=== PATIENT | female | born 1950 | race Caucasian/White ===

== ENCOUNTER 2023-09-17 10:16 | Outpatient (OUT) | payer MEDICARE, SELFPAY ==
--- NOTE | 2023-09-17 10:52 | XR_ITS ---
The [address] [address] Patient Name: BON ALMONTE MRN: [id number] date: 1950 Sex: F Assigned Patient Location: [facility] Current Patient Location: [facility] Accession/Order Number: [id number] Exam Date: 09/17/2023 11:00 Report Date: 09/17/2023 13:55 At the request of: UNIQUE POLK Procedure: XR hand LT min 3V PROCEDURE: XR hand LT min 3V COMPARISON: None. HISTORY: Mass Of Left Hand R22.32 FINDINGS: BONES:No acute fracture or dislocation. Moderate to severe degenerative change second and third distal interphalangeal joints and first carpal metacarpal joint where there is bony remodeling. SOFT TISSUES:Negative. No visible soft tissue swelling. EFFUSION:None visible. OTHER: No plain film abnormality corresponding to the patient's focal mass along the dorsal third metacarpal phalangeal joint XR/XR hand LT min 3V IMPRESSION: No plain film abnormality to correspond to the patient's palpable mass Degenerative changes Electronically authenticated by: TESS QUARLES Date: 09/17/2023 13:55
== END 2023-09-17 10:17 | disposition home or self-care (01) ==
PROVIDERS: Visit Provider Orthopaedic Surgery
DX: R22.32 Localized swelling, mass and lump, left upper limb (principal)
CPT/HCPCS: 73130

== ENCOUNTER 2023-09-25 08:49 | Outpatient (OUT) | payer MEDICARE, SELFPAY ==
--- NOTE | 2023-09-25 09:11 | MR_ITS ---
The [address] [address] Patient Name: BON ALMONTE MRN: [id number] date: 1950 Sex: F Assigned Patient Location: LAB Current Patient Location: Accession/Order Number: [id number] Exam Date: 09/25/2023 10:00 Report Date: 09/27/2023 15:46 At the request of: UNIQUE POLK Procedure: MR hand LT wo/w con EXAM: MR hand LT wo/w con HISTORY: Palmar mass COMPARISON: Hand x-rays 09/17/2023 TECHNIQUE: Multiplanar, multi sequential MRI sequences were performed with and without the administration of intravenous contrast FINDINGS: Soft tissue markers have been placed along the palmar aspect of the hand. These soft tissue markers abnormally compress the underlying soft tissues and result in inhomogeneous fat saturation. Approximately 12 x 11 x 6.3 mm multiloculated synovial cyst emanates from the volar aspect of the third flexor tendon sheath (axial 24, coronal 9 and sagittal 13). Approximately 6.4 x 4.8 x 2.5 mm synovial cyst emanates from the volar aspect of the second flexor tendon sheath (axial 24). No tendon thickening, tear, edema or tenosynovial collection. The remainder of the flexor tendons along with all of the extensor tendons exhibit no thickening, tear, edema or tenosynovial collections. No abnormal bursal fluid collections. No fracture, dislocation, subluxation or osseous lesion. No joint effusion, synovitis or erosion. The joint capsules and collateral ligaments appear unremarkable. No muscle edema, hematoma, atrophy or fatty infiltration. Postcontrast sequences exhibit no abnormal enhancement. MR/MR hand LT wo/w con IMPRESSION: 12 x 11 x 6.3 mm multiloculated synovial cyst emanates from the volar aspect of the third flexor tendon sheath. 6.4 x 4.8 x 2.5 mm synovial cyst emanates from the volar aspect of the second flexor tendon sheath Electronically authenticated by: TESS LANE Date: 09/27/2023 15:46
[2023-09-25 09:57] LABS: Estimated GFR (African America >60 (>=60); Estimated GFR (Non-African Ame 57 (>=60)
== END 2023-09-25 08:50 | disposition home or self-care (01) ==
PROVIDERS: Visit Provider Orthopaedic Surgery
DX: Z01.812 Encounter for preprocedural laboratory examination (principal); R22.32 Localized swelling, mass and lump, left upper limb; M71.342 Other bursal cyst, left hand
CPT/HCPCS: 36415; 73220; 82565; A9575

== ENCOUNTER 2024-01-29 14:12 | Outpatient (OUT) | payer MEDICARE, SELFPAY ==
--- OUTSIDE RECORDS SUMMARY | 2024-01-29 14:24 | XMS_ITS | CCD ---
Author Organization [facility] Care Team Providers Care Assistant Technician Name Role Phone Ivonne Álvarez MD Primary Care Provider MD Ivonne Álvarez Primary Care Provider [phone] Self, Referral Attending Provider Unavailable Ivonne Álvarez MD Primary Care Provider [phone] Ivonne Álvarez MD Primary Care Provider [phone] Ivonne Álvarez MD Primary Care Provider [phone] JAZZY RILEY Referring Unavailabl e IVONNE ÁLVAREZ Primary Care Unavailable BLANCA MELO Referring Unavailable IVONNE ÁLVAREZ M Primary Care Unavailable BLANCA MELO Referring Unavailable IVONNE ÁLVAREZ M Primary Care Unavailable BLANCA MELO Referring Unavailable IVONNE ÁLVAREZ M Primary Care Unavailable MCKENZIEY ., DR CORONADO Admitting Unavailable HOY ., DR CORONADO Attending Unavailable HOY ., DR CORONADO Primary Care Unavailable HOY ., DR CORONADO Consulting Unavailable ZIEBER, DR UNIQUE Perrin Consulting Unavailable HOY ., DR CORONADO Admitting Unavailable HOY ., DR CORONADO Attending Unavailable HOY ., DR CORONADO Primary Care Unavailable HOY ., DR CORONADO Consulting Unavailable ZIEBER, DR UNIQUE Perrin Consulting Unavailable HOY ., DR CORONADO Admitting Unavailable HOY ., DR CORONADO Attending Unavailable HOY ., DR CORONADO Primary Care Unavailable HOY ., DR COROANDO Consulting Unavailable HOY ., DR CORONADO Admitting Unavailable HOY ., DR CORONADO Attending Unavailable HOY ., DR CORONADO Primary Care Unavailable MCKENZIEY ., DR CORONADO Consulting Unavailable MD Ivonne Álvarez Primary Care Provider [phone] Self, Referral Attending Provider Unavailable MAIN Riley Referring Provider Ivonne Álvarez Primary Care Unavailable Self, Referral Attending Unavailable Self, Referral Admitting Unavailable Jazzy Riley Referring Unavailable Ivonne Álvarez MD Primary Care Provider [phone] IVONNE ÁLVAREZ Primary Care Unavailable IVONNE ÁLVAREZ Primary Care Unavailable DANTE PALOMARES MD Referring Unavailable Medications Current Medications Medication Drug Class(es) Dates Sig (Normalized) Sig (Original) acetaminophen 325 mg oral capsule (10 sources) Start: 03-26-2021 Acetaminophen (Tylenol) 325 mg Capsule Active 500 MG PO Daily March 26, 2021 10:09am take 1 tablet by laura th every six hours as needed for pain acetaminophen (TYLENOL) 500 MG tablet Ta ke 500 mg by mouth every 6 hours as needed for Pain 0 Active ACETAMINOPHEN (T YLENOL ORAL) Take by mouth. 0 Active Comment on above: Take by mouth. allopurinol 300 mg oral tablet (10 sources) Xanthine Oxidase Inhibitor Start: 03-26-20 take 1 tablet by mouth once daily allopurinol (ZYLOPRIM) 300 MG tablet TAKE 1 TABLET BY MOUTH ONCE DAILY 0 07/12/2022 Active Comment on above: Take 300 mg by mouth once daily. chlorthalidone 25 mg oral tablet (12 sources) Thiazide-like Diuretic Start: 08-10-20 23 take 1 tablet by mouth once daily chlorthalidone (HYGROTON) 25 mg tablet Indications: Essential hypertension Take 1 tablet by mouth once daily. 90 tablet 3 08/10/2023 Active Start: 02-26-2021 End: 08-07-2023 take 1 tablet by mouth once daily chlorthalidone (HYGROTON) 25 mg tablet Indications: Essential hypertension Take 1 tablet by mouth once daily. 90 tablet 3 03/06/2022 08/07/2023 Discontinued Comment on above: Take 1 tablet by laura th once daily. cholecalciferol 0.05 mg oral capsule (5 sources) Vitamin D Start: 03-26-20 take 1 capsule by mouth once daily Cholecalciferol (Vitamin D3) (Vitamin D3) 50 mcg (2,000 unit) Capsule Active 50 MCG PO Daily March 26, 2021 10:09am Cholecalciferol (VITAMIN D3) 125 MCG (5000 UT) TABS Take by mouth 0 Active ciprofloxacin 500 mg oral tablet (2 sources) Quinolone Antimicrobial Start: 08-04-2022 take 1 tablet by mouth twice daily ciprofloxacin (CIPRO) 500 MG tablet TAKE 1 TABLET BY MOUTH TWICE DAILY 0 08/04/2022 Active diclofenac sodium 75 mg delayed release oral tablet (10 sources) Nonsteroidal Anti-inflammatory Drug Start: 06-28-2022 take 1 tablet by mouth twice daily diclofenac (VOLTAREN) 75 MG EC tablet TAKE 1 TABLET BY MOUTH TWICE DAILY 0 06/28/2022 Active Start: 03-26-2021 take 75 mg by mouth once daily Diclofenac Sodium Active 75 MG PO Daily March 26, 2021 10:09am Comment on above: Take 75 mg by mouth once daily. lovastatin 20 mg oral tablet (10 sources) HMG-CoA Reductase Inhibitor Start: 1 take 1 tablet by mouth once daily lovastatin (MEVACOR) 20 MG tablet TAKE 1 TABLET BY MOUTH ONCE DAILY 0 05/03/2022 Active Comment on above: Take 20 mg by mouth daily at bedtime. 24 hr mirabegron 25 mg extended release oral tablet (1 source) beta3-Adrenergic Agonist Start: 2 End: 3 take 1 tablet by mouth once daily mirabegron (MYRBETRIQ) 25 MG TB24 Indications: Mixed incontinence , Renal calculus , Frequent UTI Take 1 tablet by mouth daily 56 tablet 0 09/24/2022 11/19/2022 Active oxybutynin chloride 5 mg oral tablet (10 sources) Cholinergic Muscarinic Antagonist Start: 1 take 5 mg by mouth once daily Oxybutynin Chloride Active 5 MG PO Daily March 26, 2021 10:09am take 1 tablet by mouth twice lew ly oxybutynin (DITROPAN) 5 mg tablet Take 5 mg by mouth twice daily. 0 Active Comment on above: Take 5 mg by mouth t wice daily. pantoprazole 40 mg delayed release oral tablet (9 sources) Proton Pump Inhibitor Start: 2 take 1 tablet by mouth once daily pantoprazole (PROTONIX) 40 MG tablet TAKE 1 TABLET BY MOUTH ONCE DAILY 0 05/11/2022 Active Start: 03-26-2021 take 20 mg by mouth once daily Pantoprazole Active 20 MG PO Daily March 26, 2021 10:09am Comment on above: Take 1 tablet by laura once daily. Completed/Discontinued Medications Medication Drug Class(es) Dates Sig (Normalized) Sig (Original) cholecalciferol, vitamin D3, (VITAMIN D3 ORAL) (2 sources) take 1000 mg by mouth once daily cholecalciferol, vitamin D3, (VITAMIN D3 ORAL) Take 1,000 mg by mouth once daily. 0 Active Comment on above: Take 1,000 mg by laura th once daily. dicyclomine hydrochloride 20 mg oral tablet (5 sources) Anticholinergic Start: 04-16-2021 take 1 tablet by mouth twice daily dicyclomine (BENTYL) 20 mg tablet Take 20 mg by mouth twice daily. 0 04/16/2021 Active Comment on above: Take 20 mg by mouth twice daily. lisinopril 40 mg oral tablet (10 sources) Angiotensin Converting Enzyme Inhibitor Start: 06-14-2020 take 1 tablet by mouth once daily lisinopril (ZESTRIL, PRINIVIL) 40 mg tablet Take 1 tablet by mouth once daily. 0 06/14/2020 Active Comment on above: Take 1 tablet by laura th once daily. Problems Active Problems Problem Classification Problem Date Documented Date Episodic/Chronic Acute and unspecified renal failure (1 source) Acute injury of kidney; Translations: [Acute kidney failure, unspecified] Episodic Calculus of urinary tract (1 source) Calculus of kidney; Translations: [Calculus of kidney] Onset: 08-28-2022 Episodic Deficiency and other anemia (1 source) Anemia, unspecified; Translations: [ANEMIA UNSPECIFIED] Onset: 01-02-2023 Episodic Diabetes mellitus without complication (1 source) Other abnormal glucose; Translations: [OTHER ABNORMAL GLUCOSE] Onset: 01-02-2023 Episodic Disorders of lipid metabolism (7 sources) Mixed hyperlipidemia; Translations: [Mixed hyperlipidemia] Onset: 01-21-2022 Chronic Esophageal disorders (7 sources) Laryngopharyngeal reflux; Translations: [Gastro-esophageal reflux disease without esophagitis] Onset: 07-06-2020 07-06-2020 Chronic Essential hypertension (9 sources) Essential hypertension; Translations: [Essential (primary) hypertension] Onset: 09-10-2022 Chronic Gastritis and duodenitis (2 sources) Gastritis; Translations: [Gastritis, unspecified, without bleeding] 03-26-2021 Episodic Genitourinary symptoms and ill-defined conditions (4 sources) Urinary incontinence; Translations: [Unspecified urinary incontinence] Onset: 07-29-2022 Chronic Nutritional deficiencies (1 source) Vitamin D deficiency, unspecified; Translations: [VITAMIN D DEFICIENCY UNSPECIFIED] Onset: 01-02-2023 Chronic Other non-traumatic joint disorders (1 source) Pain in left hip; Translations: [PAIN IN LEFT HIP] Onset: 01-02-2023 Episodic Other screening for suspected conditions (not mental disorders or infectious disease) (9 sources) Patient encounter status; Translations: [Encounter for screening for malignant neoplasm of colon] Onset: 01-27-2022 03-26-2021 Episodic Spondylosis; intervertebral disc disorders; other back problems (5 sources) Cervical spondylosis without myelopathy; Translations: [Spondylosis without myelopathy or radiculopathy, cervical region] Onset: 12-03-2015 12-03-2015 Chronic Unclassified (1 source) Encounter for screening mammogram for malignant neoplasm of breast; Translations: [Encounter for screening mammogram for malignant neoplasm of breast] Onset: 07-09-2023 Past or Other Problems Problem Classification Problem Date Documented Da te Episodic/Chronic Malaise and fatigue (1 source) Other fatigue; Translations: [OTHER FATIGUE] Onset: 01-24-2022 Episodic Other diseases of kidney and ureters (1 source) Disorder of kidney and ureter, unspecified; Translations: [DISORDER KIDNEY AND URETER UNS] Onset: 01-20-2022 Episodic Spondylosis; intervertebral disc disorders; other back problems (5 sources) Brachial (cervical) neuritis; Translations: [Radiculopathy, cervical region] Onset: 12-03-2015 12-03-2015 Episodic Urinary tract infections (7 sources) Recurrent urinary tract infection; Translations: [Urinary tract infection, site not specified] Onset: 01-16-2022 Episodic Results Test Name Value Interpretation Reference Range Facility Basic metabolic 2000 panelon 08-13-2023 Anion gap [Moles/Vol] 8 mmol/L Low 9-18 [facility] Comment on above: Order Comment: Speci men Type: BLOOD SPECIMEN Ordering Facility: [facility] Address: [place] [address] Performed By: #### 2 4321-2 #### [facility] CLIA [id number] [address] [place] [address] Calcium [Mass/Vol] 9.3 mg/dL Normal 8.5-10.[address] [facility] Comment on above: Order Comment: Speci men Type: BLOOD SPECIMEN Ordering Facility: [facility] Address: [address] [place] [address] Performed By: #### 2 4321-2 #### [facility] CLIA [id number] [address] [place] [address] Chloride [Moles/Vol] 103 mmol/L Normal 97-105 [facility] Comment on above: Order Comment: Speci men Type: BLOOD SPECIMEN Ordering Facility: [facility] Address: [address] [place] [address] Performed By: #### 2 4321-2 #### [facility] CLIA [id number] [address] [place] [address]7967 CO2 [Moles/Vol] 29 mmol/L Normal 22-30 [facility] Comment on above: Order Comment: Speci men Type: BLOOD SPECIMEN Ordering Facility: [facility] Address: [address] [place] [address] Performed By: #### 2 4321-2 #### [facility] CLIA [id number] [address] [place] [address]252 Creatinine [Mass/Vol] 0.92 mg/dL Normal 0.58-0.96 [facility] Comment on above: Order Comment: Speci men Type: BLOOD SPECIMEN Ordering Facility: [facility] Address: [address] [place] [address] Performed By: #### 2 4321-2 #### [facility] CLIA [id number] [address] [place] [address] Creatinine and Glomerular filtration rate.predicted panel (S/P/Bld) 67 mL/min/1.73m??? Normal >=60 [facility] Comment on above: Order Comment: Speci men Type: BLOOD SPECIMEN Ordering Facility: [facility] Address: [address] [place] [address] Result Comment: Nallely mated Glomerular Filtration Rate (eGFR) is calculated using the 2020 CKD-EPI creatinine equation. This equation utilizes serum creatinine, sex, and age as parameters. The creatinine assay has traceable calibration to isotope dilution-mass spectrometry. Refer to KDIGO guidelines for clinical interpretation. In patients with unstable renal function, e.g. those with acute kidney injury, the eGFR may not accurately reflect actual GFR. Performed By: #### 2 4321-2 #### [facility] CLIA [id number] [address] [place] [address]141 Glucose [Mass/Vol] 119 mg/dL High 74-[address] [facility] Comment on above: Order Comment: Speci men Type: BLOOD SPECIMEN Ordering Facility: [facility] Address: [address] [place] [address] Result Comment: The [place] Diabetes Association (ADA) provides guidance for cutoff values for fasting glucose and random glucose. The ADA defines fasting as no caloric intake for at least 8 hours. Fasting plasma glucose results between 100 to 125 mg/dL indicate increased risk for diabetes (prediabetes). Fasting plasma glucose results greater than or equal to 126 mg/dL meet the criteria for diagnosis of diabetes. In the absence of unequivocal hyperglycemia, results should be confirmed by repeat testing. In a patient with classic symptoms of hyperglycemia or hyperglycemic crisis, random plasma glucose results greater than or equal to 200 mg/dL meet the criteria for diagnosis of diabetes. Reference: Standards of Medical Care in Diabetes 2016, [place] Diabetes Association. Diabetes Care. 2016.39(Suppl 1). Performed By: #### 2 4321-2 #### [facility] CLIA [id number] [address] [place] [address] 15592 Potassium [Moles/Vol] 3.8 mmol/L Normal 3.7-5.1 [facility] Comment on above: Order Comment: Speci men Type: BLOOD SPECIMEN Ordering Facility: [facility] Address: [address] [place] [address] Performed By: #### 2 4321-2 #### [facility] CLIA [id number] [address] [place] [address] Sodium [Moles/Vol] 140 mmol/L Normal 136-[address] [facility] Comment on above: Order Comment: Speci men Type: BLOOD SPECIMEN Ordering Facility: [facility] Address: [place] [address] Performed By: #### 2 4321-2 #### [facility] CLIA [id number] [address] [place] [address] 97659 Urea nitrogen [Mass/Vol] 19 mg/dL Normal 7-21 [facility] Comment on above: Order Comment: Speci men Type: BLOOD SPECIMEN Ordering Facility: [facility] Address: [place] [address] Performed By: #### 2 4321-2 #### [facility] CLIA [id number] [address] [place] [address] MM screening mammo BI w/CADo n 07-09-2023 MM screening mammo BI w/CAD [facility] [place] [address] [place] [address] Mammography Report Signed Patient: Monique Valdez MR#: [id number] : 1950 Acct:[id number] Age/Sex: 73 / F ADM Date: 07/09/23 Loc: [place] Room: Type: [facility] Attending Dr: Referral Self Copies to: Ivonne Álvarez MD SELF,REFERRAL Jazzy Riley CNM Ordering Provider: SELF,REFERRAL Date of Service: 07/09/23 MM/MM screening mammo BI w/CAD: SCREENING BILATERAL Screening Full Field digital mammogram with 3-D imaging. Full field digital CC and MLO imaging performed. CAD utilized. COMPARISON: 04/02/2022 HISTORY: Annual screening BREAST COMPOSITION: The breast is almost entirely fatty. BENIGN BREAST CALCIFICATIONS: Present VASCULAR CALCIFICATIONS: Present DEVELOPING ARCHITECTURAL DISTORTION: None DEVELOPING BREAST NODULE: None DEVELOPING MALIGNANT CALCIFICATIONS: None AXILLARY LYMPH NODES: Normal POSTSURGICAL CHANGES: None MM/MM screening mammo BI w/CAD IMPRESSION: No mammographic evidence of malignancy. Routine follow-up recommended in one year. RESULT CODE: 2 Benign Findings(s) DENSITY CODE: 2 (approximately 25-50% glandular) FOLLOW UP: 1YR THE FALSE-NEGATIVE RATE OF MAMMOGRAPHY IS APPROXIMATELY 10%. IMAGING OF A PALPABLE ABNORMALITY MUST BE BASED ON CLINICAL GROUNDS. PATIENT WAS ENTERED INTO A REMINDER SYSTEM WITH A TARGET DUE DATE FOR THE NEXT MAMMOGRAM. Impression dictated by: Pipo Waller M.D.07/09/2023 3:08 PM Dictation Location: [facility] Transcribed By: [facility] 07/09/23 1508 Dictated By: Pipo Waller DO 07/09/23 1507 Signed By: 07/09/23 [address] [facility] INSULINon 12-25-2022 Insulin 14.0 uIU/mL Normal 2.6-24.9 [facility] Comment on above: Performed By: #### I NSULIN ####[facility] [address] [place] [address]Dr. Kai Hdz CBC AUTO DIFFon 12-24-2022 BASO # 0.1 103/ul Normal 0.0-0.1 [facility] Comment on above: Performed By: #### C BC #### [facility] [address] [place] [address] [address] Kai Hdz Basophils/100 WBC (Bld) 1.0 % Normal 0.2-2.0 [facility] Comment on above: Performed By: #### C BC #### [facility] [address] [place] [address] [address] Kai Hdz EO # 0.2 103/ul Normal 0.0-0.7 [facility] Comment on above: Performed By: #### C BC #### [facility] [address] [place] [address] [address] Kai Hdz Eosinophils/100 WBC (Bld) 2.7 % Normal 0.9-7.0 [facility] Comment on above: Performed By: #### C BC #### [facility] [address] [place] [address] [address] Kia Hdz Erythrocyte distribution width (RBC) [Ratio] 14.5 % Normal 11.0-15.0 [facility] Comment on above: Performed By: #### C BC #### [facility] [address] [place] [address] [address] Kai Hdz Hematocrit (Bld) [Volume fraction] 42.0 % Normal 36.0-48.0 [facility] Comment on above: Performed By: #### C BC #### [facility] [address] [place] [address] [address] Kai Hdz Hemoglobin (Bld) [Mass/Vol] 13.5 g/dL Normal 12.0-16.0 [facility] Comment on above: Performed By: #### C BC #### [facility] [address] [place] [address] [address] Kai Hdz IG # 0.02 10e3/ul Normal 0.00-0.03 [facility] Comment on above: Performed By: #### C BC #### [facility] [address] [place] [address] Dr. Kai Hdz IG % 0.3 % Normal 0.0-0.5 [facility] Comment on above: Performed By: #### C BC #### [facility] [address] [place] [address] Dr. Kai Hdz LYMPH # 3.3 103/ul Normal 1.2-3.8 [facility] Comment on above: Performed By: #### C BC #### [facility] [address] [place] [address] Dr. Kai Hdz Lymphocytes/100 WBC (Bld) 47.2 % Normal 20.5-60.0 [facility] Comment on above: Performed By: #### C BC #### [facility] [address] [place] [address] Dr. Kai Hdz MANUAL DIFF REQ NO Normal [facility] Comment on above: Performed By: #### C BC #### [facility] [address] [place] [address] Dr. Kai Hdz MCH (RBC) [Entitic mass] 28.7 pg Normal 26.7-34.0 [facility] Comment on above: Performed By: #### C BC #### [facility] [address] [place] [address] Dr. Kai Hdz MCHC (RBC) [Mass/Vol] 32.1 g/dL Normal 29.9-35.2 [facility] Comment on above: Performed By: #### C BC #### [facility] [address] [address] [address] Kai Hdz MCV (RBC) [Entitic vol] 89.2 fL Normal 81.0-99.0 [facility] Comment on above: Performed By: #### C BC #### [facility] [address] [place] [address] Dr. Kai Hdz MONO # 0.4 103/ul Normal 0.3-0.8 [facility] Comment on above: Performed By: #### C BC #### [facility] [address] [place] [address] Dr. Kai Hdz Monocytes/100 WBC (Bld) 5.0 % Normal 1.7-12.0 [facility] Comment on above: Performed By: #### C BC #### [facility] [address] [place] [address] Dr. Kai Hdz NEUT # 3.1 103/ul Normal 1.4-6.5 [facility] Comment on above: Performed By: #### C BC #### [facility] [address] [place] [address] Dr. Kai Hdz Neutrophils/100 WBC (Bld) 43.8 % Normal 43.0-75.0 [facility] Comment on above: Performed By: #### C BC #### [facility] [address] [place] [address] Dr. Kai Hdz Platelet mean volume (Bld) [Entitic vol] 9.0 fL Critically low 9.5-13.5 [facility] Comment on above: Performed By: #### C BC #### [facility] [address] [place] [address] Dr. Kai Hdz PLT 243 103/ul Normal 150-450 [facility] Comment on above: Performed By: #### C BC #### [facility] [address] [place] [address] Dr. Kai Hdz RBC 4.71 106/ul Normal 4.20-5.40 [facility] Comment on above: Performed By: #### C BC #### [facility] [address] [address] [address] Kai Hdz WBC 7.0 103/ul Normal 4.0-11.0 [facility] Comment on above: Performed By: #### C BC #### [facility] [address] [place] [address] [address] Kai Hdz FREE THYROXINE INDEX T7on FTI 2.71 Normal 1.30-4.50 [facility] Comment on above: Performed By: #### C MP, TSH, T7, LIPID ####[facility] [address] [place] [id number]. Kai Hdz T3U 33.0 % Normal 30.0-39.0 [facility] Comment on above: Performed By: #### C MP, TSH, T7, LIPID ####[facility] [address] [place] [id number] Hdz T4 [Mass/Vol] 8.20 ug/dL Normal 4.80-13.90 [facility] Comment on above: Performed By: #### C MP, TSH, T7, LIPID ####[facility] [address] [place] [address]DrLucio Hdz GLYCOHEMOGLOBIN A1Con 2022 ADA RECOMMENDATION SEE BELOW Normal [facility] Comment on above: Result Comment: ADA RECOMMENDED LIMIT 4.0 - 6.0 ADA THERAPEUTIC TARGET < 7.0 ACTION SUGGESTED > 7.0 Performed By: #### A 1C ####[facility] [address] [place] [address]DrLucio Hdz Glucose [Mass/Vol] 105 mg/dL Normal [facility] Comment on above: Performed By: #### A 1C ####[facility] [address] [place] [address]DrLucio Hdz HbA1c (Bld) [Mass fraction] 5.3 % Normal 4.5-6.2 [facility] Comment on above: Performed By: #### A 1C ####[facility] [address] [place] [address]DrLucio Hdz IRONon 12-24-2022 Iron [Mass/Vol] 89.0 ug/dL Normal 50.0-170.0 [facility] Comment on above: Performed By: #### V ITAD, IRON ####[facility] [address] [place], [place] [address]OdDr. Kai Hdz LIPID PROFILEon 12-24-2022 CHOL-HDL RATIO NORM SEE BELOW Normal [facility] Comment on above: Result Comment: 3.3 - 4.4 LOW RISK 4.4 - 7.1 AVERAGE RISK 7.1 - 11.0 MODERATE RISK >11.0 HIGH RISK Performed By: #### C MP, TSH, T7, LIPID #### [facility] [address] [address] [address] Kai Hdz Cholesterol [Mass/Vol] 246 mg/dL Critically high <=200 [facility] Comment on above: Performed By: #### C MP, TSH, T7, LIPID #### [facility] [address] [place] [address] [address] Kai Hdz Cholesterol in HDL [Mass/Vol] 43 mg/dL Normal 40-60 [facility] Comment on above: Performed By: #### C MP, TSH, T7, LIPID #### [facility] [address] [place] [address] [address] Kai Hdz Cholesterol in LDL [Mass/Vol] 158.2 mg/dL Normal [facility] Comment on above: Performed By: #### C MP, TSH, T7, LIPID #### [facility] [address] [address] [address] Kai Hdz Cholesterol.total/Cho lesterol in HDL [Mass ratio] 5.7 {ratio} Normal [facility] Comment on above: Performed By: #### C MP, TSH, T7, LIPID #### [facility] [address] [address] [address] Kai Hdz HDL NORMAL > or = 60 mg/dl - LOW CARDIOVASCULAR RISK <40 mg/dl - HIGH CARDIOVASCULAR RISK Normal [facility] Comment on above: Performed By: #### C MP, TSH, T7, LIPID #### [facility] [address] [address] [address] Kai Hdz LDL CALC NORMAL SEE BELOW Normal [facility] Comment on above: Result Comment: <100 mg/dl OPTIMAL 100 - 129 mg/dl NEAR OR ABOVE OPTIMAL 130 - 159 mg/dl BORDERLINE HIGH 160 - 189 mg/dl HIGH >190 mg/dl VERY HIGH Performed By: #### C MP, TSH, T7, LIPID #### [facility] [address] [address] [address] Kai Hdz Triglyceride [Mass/Vol] 224 mg/dL Critically high <=150 [facility] Comment on above: Performed By: #### C MP, TSH, T7, LIPID #### [facility] [address] [address] [address] Kai Hdz VLDL CALC 44.8 mg/dL Normal [facility] Comment on above: Performed By: #### C MP, TSH, T7, LIPID #### [facility] [address] [address] [address] Kai Hdz OCC BLD IMMUNO SCREENon 12-10 OCCULT BLOOD Negative Normal NEGATIVE [facility] Comment on above: Performed By: #### O BSCRN ####[facility] [address] [address]Dr. Kai Hdz PROF 14(COMP METB)on 023 Albumin [Mass/Vol] 3.7 g/dL Normal 3.4-5.0 [facility] Comment on above: Performed By: #### C MP, TSH, T7, LIPID #### [facility] [address] [address] [address] Kai Hdz Albumin/Globulin [Mass ratio] 1.2 {ratio} Normal [facility] Comment on above: Performed By: #### C MP, TSH, T7, LIPID #### [facility] [address] [address] [address] Kai Hdz ALP [Catalytic activity/Vol] 84 U/L Normal 46-116 [facility] Comment on above: Performed By: #### C MP, TSH, T7, LIPID #### [facility] [address] [address] [address] Kai Hdz ALT [Catalytic activity/Vol] 17 U/L Normal 14-59 [facility] Comment on above: Performed By: #### C MP, TSH, T7, LIPID #### [facility] [address] [address] [address] Kai Hdz Anion gap [Moles/Vol] 8.8 mmol/L Normal [facility] Comment on above: Performed By: #### C MP, TSH, T7, LIPID #### [facility] [address] [address] [address] Kai Hdz AST [Catalytic activity/Vol] 17 U/L Normal 15-37 [facility] Comment on above: Performed By: #### C MP, TSH, T7, LIPID #### [facility] [address] [place] [address] Dr. Kai Hdz Bilirubin [Mass/Vol] 0.7 mg/dL Normal 0.2-1.0 [facility] Comment on above: Performed By: #### C MP, TSH, T7, LIPID #### [facility] [address] [place] [address] Dr. Kai Hdz Calcium [Mass/Vol] 9.2 mg/dL Normal 8.5-10.1 [facility] Comment on above: Performed By: #### C MP, TSH, T7, LIPID #### [facility] [address] [place] [address] Dr. Kai Hdz Chloride [Moles/Vol] 104 mmol/L Normal 98-107 [facility] Comment on above: Performed By: #### C MP, TSH, T7, LIPID #### [facility] [address] [place] [address] Dr. Kai Hdz CO2 [Moles/Vol] 29.2 mmol/L Normal 21.0-32.0 [facility] Comment on above: Performed By: #### C MP, TSH, T7, LIPID #### [facility] [address] [place] [address] Dr. Kai Hdz Creatinine [Mass/Vol] 0.78 mg/dL Normal 0.55-1.02 [facility] Comment on above: Performed By: #### C MP, TSH, T7, LIPID #### [facility] [address] [address] [address] Kai Hdz EGFR-AF LIBYAN >60 Normal >=60 [facility] Comment on above: Performed By: #### C MP, TSH, T7, LIPID #### [facility] [address] [address] [address] Kai Hdz EGFR-NON AF LIBYAN >60 Normal >=60 [facility] Comment on above: Performed By: #### C MP, TSH, T7, LIPID #### [facility] [address] [address] [address] Kai Hdz Globulin (S) [Mass/Vol] 3.2 g/dL Normal [facility] Comment on above: Performed By: #### C MP, TSH, T7, LIPID #### [facility] [address] [place] [address] Dr. Kai Hdz Glucose [Mass/Vol] 110 mg/dL Critically high 74-106 [facility] Comment on above: Performed By: #### C MP, TSH, T7, LIPID #### [facility] [address] [address] [address] Kai Hdz Potassium [Moles/Vol] 4.0 mmol/L Normal 3.5-5.1 [facility] Comment on above: Performed By: #### C MP, TSH, T7, LIPID #### [facility] [address] [address] [address] Kai Hdz Protein [Mass/Vol] 6.9 g/dL Normal 6.4-8.2 [facility] Comment on above: Performed By: #### C MP, TSH, T7, LIPID #### [facility] [address] [address] [address] Kai Hdz Sodium [Moles/Vol] 138 mmol/L Normal 136-145 [facility] Comment on above: Performed By: #### C MP, TSH, T7, LIPID #### [facility] [address] [address] [address] Kai Hdz Urea nitrogen [Mass/Vol] 24.0 mg/dL Critically high 7.0-18.0 [facility] Comment on above: Performed By: #### C MP, TSH, T7, LIPID #### [facility] [id number] Kai Hdz Urea nitrogen/Creatinine [Mass ratio] 30.8 mg/mg Normal [facility] Comment on above: Performed By: #### C MP, TSH, T7, LIPID #### [facility] [address] [place], [place] [address] Dr. Kai Hdz TSHon 12-24-2022 TSH 3.414 uIU/mL Normal 0.358-3.740 [facility] Comment on above: Performed By: #### C MP, TSH, T7, LIPID #### [facility] [address] [address] [address] Kai Hdz VITAMIN D 25 OHon 12-24-2022 VIT D 25-OH 26.7 ng/mL Normal [facility] Comment on above: Performed By: #### V TOMAS, IRON ####[facility] [address] [place], [place] [address]UvLucio Hdz VIT D RANGES SEE BELOW Normal [facility] Comment on above: Result Comment: <20 ng/mL Vit D deficient 20 - <30 ng/mL Vit D insufficient 30 - 100 ng/mL Vit D sufficient >100 ng/mL Potential Toxicity Performed By: #### V ITERICA, IRON ####[facility] [address] [id number] Hdz XR HIPS KOFI 5V W PELVISon XR HIPS KOFI 5V W PELVIS EXAMINATION: XR HIPS KOFI 5V W PELVIS HISTORY: Bilateral hip joint pain , chronic, right greater than left COMPARISON: No relevant comparison available. FINDINGS: RIGHT FINDINGS: BONES: Mild narrowing of the superior aspect of the hip joint space. No fracture, dislocation, or articular surface irregularity. SOFT TISSUES: No visible soft tissue swelling. OTHER: Negative. LEFT FINDINGS: BONES: Mild narrowing of the superior aspect of the hip joint space, and small osteophyte along superior rim of the acetabulum. No fracture, dislocation, or articular surface irregularity. SOFT TISSUES: No visible soft tissue swelling. OTHER: Negative. IMPRESSION: RIGHT CONCLUSION: Mild degenerative change of the right hip joint. LEFT CONCLUSION: Mild degenerative changes of the left hip joint. Electronically authenticated by: UNIQUE PEREZ Date: 2022-12-24 15:01 Normal [facility] Cult,Urineon 09-25-2022 Cult,Urine Specimen Description .CLEAN CATCH URINE Culture ESCHERICHIA COLI >[id number] CFU/ML Report Status FINAL 09/25/2022 SUSCEPTIBILITY Organism ESCHERICHIA COLI Method RC Ampicillin >=32 RESISTANT Aztreonam <=1 SUSCEPTIBLE Cefazolin <=4 SUSCEPTIBLE Cefazolin sensitivity results can be used to predict the effectiveness of oral cephalosporins (eg. Cephalexin) in uncomplicated Urinary Tract Infections due to E. coli, K. pneumoniae, and P. mirabilis Ceftriaxone <=1 SUSCEPTIBLE Ciprofloxacin >=4 RESISTANT ESBL NEGATIVE Gentamicin <=1 SUSCEPTIBLE Nitrofurantoin <=16 SUSCEPTIBLE Tobramycin <=1 SUSCEPTIBLE Trimethoprim/Sulfa <=20 SUSCEPTIBLE Piperacillin/Tazobac morales <=4 SUSCEPTIBLE Susceptible [facility] Comment on above: Performed By: #### U RC #### [address] [id number] Process Consultant: Rishi Perez MD [facility] [address] [place] [address] [place] [address] Process Consultant: Sang Aburto MD Urinalysis w/ Microon 2021 Bacteria 4+ Abnormal NONE [facility] Comment on above: Performed By: #### U AMIC #### [address] [place] [address] Process Consultant: Sang Aburto MD Bilirubin, SemiQt,Ur Negative Normal NEG [facility] Comment on above: Performed By: #### U AMIC #### [facility] [address] [place] [address] [place] [address] Process Consultant: Sang Aburto MD Blood, Urine Negative Normal NEG [facility] Comment on above: Performed By: #### U AMIC #### [facility] [address] [place] [address] [place] [address] Process Consultant: Sang Aburto MD Clarity (U) Clear Normal CLEAR [facility] Comment on above: Performed By: #### U AMIC #### [facility] [address] [place], [place] [id number] Process Consultant: Sang Aburto MD Color (U) Yellow Normal YEL [facility] Comment on above: Performed By: #### U AMIC #### [facility] [address] [place], [place] [id number] Process Consultant: Sang Aburto MD Epithelial cells LM Ql (Urine sed) 0 TO 2 Normal 0-25 [facility] Comment on above: Performed By: #### U AMIC #### [facility] [address] [place] [address] Dr. [place], [place] [id number] Process Consultant: Sang Aburto MD Glucose Ql (U) Negative Normal NEG [facility] Comment on above: Performed By: #### U AMIC #### [facility] [address] [place] [address] Dr. [place], [place] [phone] Process Consultant: Sang Aburto MD Ketones Ql (U) Negative Normal NEG [facility] Comment on above: Performed By: #### U AMIC #### [facility] [address] [place] [address] Dr. [place], [place] [phone] Process Consultant: Sang Aburto MD Leukocyte esterase Test strip Ql (U) TRACE Abnormal NEG [facility] Comment on above: Performed By: #### U AMIC #### [facility] [address] [place] [address] Dr. [place], [place] [id number] Process Consultant: Sang Aburto MD Nitrite,Ur Positive Abnormal NEG [facility] Comment on above: Performed By: #### U AMIC #### [facility] [address] [place] [address] Dr. [place], [place] [id number] Process Consultant: Sang Aburto MD PH,Ur 6.0 Normal 5.0-9.0 [facility] Comment on above: Performed By: #### U AMIC #### [facility] [address] [place], [place] [id number] Process Consultant: Sang Aburto MD Protein Ql (U) Negative Normal NEG [facility] Comment on above: Performed By: #### U AMIC #### [facility] [address] [place], [place] [id number] Process Consultant: Sang Aburto MD Spec. [place],Ur 1.025 High 1.010-1.020 [facility] Comment on above: Performed By: #### U AMIC #### [facility] [address] [place] [address] Dr. [place], [place] [id number] Process Consultant: Sang Aburto MD Urine RBC's 0 TO 2 Normal 0-2 [facility] Comment on above: Performed By: #### U AMIC #### [facility] [address] [place] [address] Dr. [place], [place] 1774883 Process Consultant: Sang Aburto MD Urine WBC's 5 TO 10 Normal 0-5 [facility] Comment on above: Performed By: #### U AMIC #### [address] [place], [place] [id number] Process Consultant: Sang Aburto MD Urobilinogen,Ur Normal Normal NORM [facility] Comment on above: Performed By: #### U AMIC #### [facility] [address] [place] [address] Dr. [place], [place] [phone] Process Consultant: Sang Aburto MD Urinalysis with Microscopico n 09-24-2022 Bacteria, UA 4+ Abnormal None [facility] Bilirubin Urine Negative NEGATIVE [facility] Color, UA Yellow Yellow [facility] Epithelial Cells UA 0 TO 2 [facility] Glucose, Ur Negative NEGATIVE [facility] Interpretation and review of laboratory results Abnormal [facility] Ketones Ql (U) Negative NEGATIVE [facility] Leukocyte esterase Test strip Ql (U) TRACE Abnormal NEGATIVE [facility] (FIG) Nitrite, Urine Positive Abnormal NEGATIVE [facility] S [employer] pH, UA 6.0 5.0 - 9.0 [facility] ([facility]) Protein, UA Negative NEGATIVE [facility] (FIG) RBC, UA 0 TO 2 [facility] (FIG) Specific [place], UA 1.025 High 1.010 - 1.020 B [facility] (FIG) Turbidity UA Clear Clear [facility] (FIG) Urine Hgb Negative NEGATIVE [facility] (FIG) Urobilinogen, Urine Normal Normal [facility] WBC, UA 5 TO 10 [facility] Grow (FIG) [facility]ravant[facility] Lipid 1996 panelon 2 Cholesterol [Mass/Vol] 218 mg/dL High <200 [facility] Comment on above: Order Comment: Speci men Type: BLOOD SPECIMEN Ordering Facility: [facility] Address: [address] [place] [address] Result Comment: <200 mg/dL, Desirable 200-239 mg/dL, Borderline high >239 mg/dL, High Performed By: #### 2 4331-1 #### [facility] CLIA [id number] [address] [place] [address] [facility] Cholesterol in HDL [Mass/Vol] 38 mg/dL Low >39 [facility] Comment on above: Order Comment: Speci men Type: BLOOD SPECIMEN Ordering Facility: [facility] Address: [address] [place] [address] Result Comment: 40-5 9 mg/dL, Acceptable >59 mg/dL, High: Negative risk factor for coronary heart disease <40 mg/dL, Low: Positive risk factor for coronary heart disease Performed By: #### 2 4331-1 #### [facility] CLIA [id number] [address] [place] [address] [facility] Cholesterol in LDL [Mass/Vol] 148 mg/dL High <100 [facility] Comment on above: Order Comment: Speci men Type: BLOOD SPECIMEN Ordering Facility: [facility] Address: [address] [place] [address] Result Comment: <100 mg/dL, Optimal 100-129 mg/dL, Near optimal/above optimal 130-159 mg/dL, Borderline high 160-189 mg/dL, High >189 mg/dL, Very high Secondary prevention optimal LDL Cholesterol levels are recommended to be < 70 mg/dL Performed By: #### 2 4331-1 #### [facility] CLIA [id number] [address] [place] [address] [place] Cholesterol in LDL/Cholesterol in HDL [Mass ratio] 3.89 {ratio} High <2.54 [facility] Comment on above: Order Comment: Taty mosquera Type: BLOOD SPECIMEN Ordering Facility: [facility] Address: [address] Result Comment: Refe kaylace: 1. National Cholesterol Education Program ATP III Guideline At-A-Glance Quick Desk Reference: National Heart, Lung, and Blood [place]. National Institutes of Health. 2001: NIH Publication No. 01-3305. 2. An International Atherosclerosis Society position paper: global recommendations for the management of dyslipidemia: executive summary, Atherosclerosis. 2014: 232(2):410-413. Performed By: #### 2 4331-1 #### [facility] CLIA [id number] [address] [place] [address] [place] Cholesterol in VLDL [Mass/Vol] 32 mg/dL High <30 [facility] Comment on above: Order Comment: Taty mosquera Type: BLOOD SPECIMEN Ordering Facility: [facility] Address: [address] Performed By: #### 2 4331-1 #### [facility] CLIA [id number] [address] [place] [address] [place] Cholesterol non HDL [Mass/Vol] 180 mg/dL High <130 [facility] Comment on above: Order Comment: Taty mosquera Type: BLOOD SPECIMEN Ordering Facility: [facility] Address: [address] Result Comment: <130 mg/dL, Optimal 130-159 mg/dL, Near optimal/above optimal 160-189 mg/dL, Borderline high 190-219 mg/dL, High >219 mg/dL, Very high Secondary prevention optimal non HDL Cholesterol levels are recommended to be <100 mg/dL Performed By: #### 2 4331-1 #### [facility] CLIA [id number] [address] [place] Cholesterol.total/Cho lesterol in HDL [Mass ratio] 5.74 {ratio} High <5.10 [facility] Comment on above: Order Comment: Speci men Type: BLOOD SPECIMEN Ordering Facility: [facility] Address: [address] [place] [address] Performed By: #### 2 4331-1 #### [facility] CLIA [id number] [address] [place] [address] [place] FASTING TIME 12 hrs Normal [facility] Comment on above: Order Comment: Speci men Type: BLOOD SPECIMEN Ordering Facility: [facility] Address: [address] [place] [address] Performed By: #### 2 4331-1 #### [facility] CLIA [id number] [address] [place] [address] Triglyceride [Mass/Vol] 162 mg/dL High <150 [facility] Comment on above: Order Comment: Speci men Type: BLOOD SPECIMEN Ordering Facility: [facility] Address: [address] [place] [address] Result Comment: <150 mg/dL, Normal 150-199 mg/dL, Borderline high 200-499 mg/dL, High >499 mg/dL, Very high Performed By: #### 2 4331-1 #### [facility] CLIA [id number] [address] [place] CT ABDOMEN PELVIS WO CONTRAS Ton 08-29-2022 CT ABDOMEN PELVIS WO CONTRAST EXAMINATION: CT OF THE ABDOMEN AND PELVIS WITHOUT CONTRAST 08/28/2022 3:36 pm TECHNIQUE: CT of the abdomen and pelvis was performed without the administration of intravenous contrast. Multiplanar reformatted images are provided for review. Automated exposure control, iterative reconstruction, and/or weight based adjustment of the mA/kV was utilized to reduce the radiation dose to as low as reasonably achievable. COMPARISON: 10/02/2021. HISTORY: ORDERING SYSTEM PROVIDED HISTORY: Renal calculus TECHNOLOGIST PROVIDED HISTORY: FINDINGS: Lower Chest: The lung bases demonstrate bibasilar atelectasis. Organs: The liver is enlarged measuring at least 21 cm in length. The spleen, pancreas and adrenal glands appear unremarkable for a non contrasted study. There is layering density within the gallbladder. There is a punctate less than 2 mm calculus in the right kidney. No hydronephrosis is seen. No ureteral or bladder calculi are seen. GI/Bowel: Evaluation of the bowel is limited as no enteric contrast was given. No dilated loops of bowel are seen. The appendix is not dilated. Pelvis: No pelvic masses or fluid collections are seen. The uterus has been surgically removed. Peritoneum/Retroperi toneum: The abdominal aorta is not aneurysmal. There are shotty mesenteric and retroperitoneal lymph nodes but no lymphadenopathy is seen. Bones/Soft Tissues: No acute bony abnormalities are noted. There are degenerative changes involving the spine. IMPRESSION: 1. No acute intra-abdominal or pelvic abnormality. 2. Punctate nonobstructive right kidney stone. 3. Layering density within the gallbladder likely representing biliary sludge. Interpreted by: Lamonte Douglass MD Signed by: Lamonte Douglass MD 08/29/22 Final result Normal [facility] Cult,Urineon 08-13-2022 Cult,Urine Specimen Description .CLEAN CATCH URINE Culture NO SIGNIFICANT GROWTH Report Status FINAL 08/13/2022 Normal [facility] Comment on above: Performed By: #### U RC #### [employer] [address] [place] [address] Process Consultant: Rishi Perez MD [facility] [address] [place] [address] Process Consultant: Sang Aburto MD Urinalysis w/ Microon 2021 Bacteria 1+ Abnormal NONE [facility] Comment on above: Performed By: #### U AMIC #### [facility] [address] [place], [place] [phone] Process Consultant: Sang Aburto MD Bilirubin, SemiQt,Ur SMALL Abnormal NEG [facility] Comment on above: Performed By: #### U AMIC #### [facility] [address] [place], [place] [phone] Process Consultant: Sang Aburto MD Blood, Urine Negative Normal NEG [facility] Comment on above: Performed By: #### U AMIC #### [facility] [address] [place], [place] [phone] Process Consultant: Sang Aburto MD Clarity (U) Clear Normal CLEAR [facility] Comment on above: Performed By: #### U AMIC #### [facility] [address] [place] [address] Dr. [place], [facility] Process Consultant: Sang Aburto MD Color (U) Yellow Normal YEL [facility] Comment on above: Performed By: #### U AMIC #### [facility] [address] [place] [address] Dr. [place], [place] 9783483 Process Consultant: Sang Aburto MD Epithelial cells LM Ql (Urine sed) 5 TO 10 Normal 0-25 [facility] Comment on above: Performed By: #### U AMIC #### [facility] [address] [place], [place] 1618683 Process Consultant: Sang Aburto MD Glucose Ql (U) Negative Normal NEG [facility] Comment on above: Performed By: #### U AMIC #### [facility] [address] [place], [place] [phone] Process Consultant: Sang Aburto MD Ketones Ql (U) TRACE Abnormal NEG [facility] Comment on above: Performed By: #### U AMIC #### [facility] [address] [place], [place] 2602283 Process Consultant: Sang Aburto MD Leukocyte esterase Test strip Ql (U) Negative Normal NEG [facility] Comment on above: Performed By: #### U AMIC #### [facility] [address] [place], [place] 4803483 Process Consultant: Sang Aburto MD Mucus Strands 2+ Abnormal NONE [facility] Comment on above: Performed By: #### U AMIC #### [facility] [address] [place], [place] 0626[address] Process Consultant: Sang Aburto MD Nitrite,Ur Negative Normal NEG [facility] Comment on above: Performed By: #### U AMIC #### [facility] [address] [place] [address] Dr. [place], [place] 6170383 Process Consultant: Sang Aburto MD PH,Ur 5.5 Normal 5.0-9.0 [facility] Comment on above: Performed By: #### U AMIC #### [facility] [address] [place] [address] Dr. [place], [place] [phone] Process Consultant: Sang Aburto MD Protein Ql (U) TRACE Abnormal NEG [facility] Comment on above: Performed By: #### U AMIC #### [address] [place], [place] 9596883 Process Consultant: Sang Aburto MD Spec. [place],Ur >1.030 High 1.010-1.020 [facility] Comment on above: Performed By: #### U AMIC #### [facility] [address] [place], [place] 8065[address] Process Consultant: Sang Aburto MD Urine RBC's 0 TO 2 Normal 0-2 [facility] Comment on above: Performed By: #### U AMIC #### [facility] [address] [place], [place] [phone] Process Consultant: Sang Aburto MD Urine WBC's 0 TO 2 Normal 0-5 [facility] Comment on above: Performed By: #### U AMIC #### [facility] [address] [place] [address] Process Consultant: Sang Aburto MD Urobilinogen,Ur Normal Normal NORM [facility] Comment on above: Performed By: #### U AMIC #### [facility] [address] [place] [address] Process Consultant: Sang Aburto MD Urinalysis with Microscopico n 08-11-2022 Bacteria, UA 1+ Abnormal None [facility] Bilirubin Urine SMALL Abnormal NEGATIVE [facility] Color, UA [facility] Epithelial Cells UA 5 TO 10 [facility] Glucose, Ur Negative NEGATIVE [facility] Interpretation and review of laboratory results Abnormal [facility] Ketones Ql (U) TRACE Abnormal NEGATIVE [facility] Leukocyte esterase Test strip Ql (U) Negative NEGATIVE [facility] Mucus, UA 2+ Abnormal None [facility] Nitrite, Urine Negative NEGATIVE [facility] pH, UA 5.5 5.0 - 9.0 [facility] Protein, UA TRACE Abnormal NEGATIVE [facility] RBC, UA 0 TO 2 [facility] Specific [place], UA High 1.010 - 1.020 B ON [facility] Turbidity UA Clear Clear [facility] Urine Hgb Negative NEGATIVE [facility] Urobilinogen, Urine Normal Normal [facility] WBC, UA 0 TO 2 [facility] Cult,Urineon 07-30-2022 Cult,Urine Specimen Description .CLEAN CATCH URINE Culture NO SIGNIFICANT GROWTH Report Status FINAL 07/30/2022 Normal [facility] Comment on above: Performed By: #### U RC #### [facility] [address] [place], [place] [id number] Process Consultant: Rishi Perez MD [facility] [address] [place] [address] Process Consultant: Sang Aburto MD Cytologyon 07-29-2022 Cytology (NOTE) INTERPRETATION Vaginal material, (ThinPrep vial, Imaging-assisted review): Specimen Adequacy: Satisfactory for evaluation. Descriptive Diagnosis: Negative for intraepithelial lesion or malignancy. Fungal organisms morphologically consistent with Mercedes species. Offset Assistant Press Operator: SHAILESH MUELLER(ASCP) Electronically Signed Out /08/01/2022 Source: A: Vaginal material, (ThinPrep vial, Imaging-assisted review) Clinical History Hysterectomy: vaginal Z12.72 Vaginal pap post hysterectomy, non malignant condition GYNECOLOGIC CYTOLOGY REPORT Patient Name: MONIQUE VALDEZ [facility] Rec: [id number] Path Number: [id number] [facility] CONSULTING PATHOLOGISTS [facility] ANATOMIC PATHOLOGY [address] [place] [id number] [facility] Comment on above: Performed By: #### P PPVP #### [place] [id number] Process Consultant: Rishi Perez MD Basic metabolic 2000 panelon 03-06-2022 Anion gap [Moles/Vol] 13 mmol/L 9 - 18 mmol/L [facility] Calcium [Mass/Vol] 9.8 mg/dL 8.5 - 10. 2 mg/dL [facility] Chloride [Moles/Vol] 100 mmol/L 97 - 10 5 mmol/L [facility] CO2 [Moles/Vol] 26 mmol/L 22 - 30 mmol/L [facility] Creatinine [Mass/Vol] 1.31 mg/dL High 0.58 - 0.96 mg/dL [facility] Estimated Glomerular Filtration Rate 44 mL/min/1.73m Low >=60 mL/min/1.73m [facility] Glucose [Mass/Vol] 122 mg/dL High 74 - 99 mg/dL [facility] Potassium [Moles/Vol] 3.9 mmol/L 3.7 - 5.1 mmol/L [facility] Sodium [Moles/Vol] 139 mmol/L 136 - 144 mmol/L [facility] Urea nitrogen [Mass/Vol] 32 mg/dL High 7 - 21 mg/dL [facility] OCC BLD IMMUNO SCREENon 01-10 OCCULT BLOOD Negative Normal NEGATIVE [facility] Comment on above: Performed By: #### O BSCRN ####[facility] [address] [place] [address]Dr. Kai Hdz CBC AUTO DIFFon 01-21-2022 BASO # 0.0 103/ul Normal 0.0-0.1 [facility] Comment on above: Performed By: #### C BC #### [facility] [address] [place] [address] Dr. Kai Hdz Basophils/100 WBC (Bld) 0.5 % Normal 0.2-2.0 [facility] Comment on above: Performed By: #### C BC #### [facility] [address] [place] [address] Dr. Kai Hdz EO # 0.2 103/ul Normal 0.0-0.7 [facility] Comment on above: Performed By: #### C BC #### [facility] [address] [place] [address] Dr. Kai Hdz Eosinophils/100 WBC (Bld) 2.5 % Normal 0.9-7.0 [facility] Comment on above: Performed By: #### C BC #### [facility] [address] [place] [address] Dr. Kai Hdz Erythrocyte distribution width (RBC) [Ratio] 14.5 % Normal 11.0-15.0 [facility] Comment on above: Performed By: #### C BC #### [facility] [address] [place] [address] Dr. Kai Hdz Hematocrit (Bld) [Volume fraction] 42.5 % Normal 36.0-48.0 [facility] Comment on above: Performed By: #### C BC #### [facility] [address] [place] [address] Dr. Kai Hdz Hemoglobin (Bld) [Mass/Vol] 13.6 g/dL Normal 12.0-16.0 [facility] Comment on above: Performed By: #### C BC #### [facility] [address] [place] [address] Dr. Kai Hdz IG # 0.01 10e3/ul Normal 0.00-0.03 [facility] Comment on above: Performed By: #### C BC #### [facility] [address] [place] [address] Dr. Kai Hdz IG % 0.1 % Normal 0.0-0.5 [facility] Comment on above: Performed By: #### C BC #### [facility] [address] [place] [address] Dr. Kai Hdz LYMPH # 3.2 103/ul Normal 1.2-3.8 [facility] Comment on above: Performed By: #### C BC #### [facility] [address] [place] [address] Dr. Kai Hdz Lymphocytes/100 WBC (Bld) 42.7 % Normal 20.5-60.0 [facility] Comment on above: Performed By: #### C BC #### [facility] [address] [place] [address] Dr. Kai Hdz MANUAL DIFF REQ NO Normal [facility] Comment on above: Performed By: #### C BC #### [facility] [address] [place] [address] Dr. Kai Hdz MCH (RBC) [Entitic mass] 29.1 pg Normal 26.7-34.0 [facility] Comment on above: Performed By: #### C BC #### [facility] [address] [place] [address] Dr. Kai Hdz MCHC (RBC) [Mass/Vol] 32.0 g/dL Normal 29.9-35.2 [facility] Comment on above: Performed By: #### C BC #### [facility] [address] [place] [address] Dr. Kai Hdz MCV (RBC) [Entitic vol] 90.8 fL Normal 81.0-99.0 [facility] Comment on above: Performed By: #### C BC #### [facility] [address] [place] [address] Dr. Kai Hdz MONO # 0.4 103/ul Normal 0.3-0.8 [facility] Comment on above: Performed By: #### C BC #### [facility] [address] [place] [address] [address] Kai Hdz Monocytes/100 WBC (Bld) 5.5 % Normal 1.7-12.0 [facility] Comment on above: Performed By: #### C BC #### [facility] [address] [place] [address] [address] Kai Hdz NEUT # 3.7 103/ul Normal 1.4-6.5 [facility] Comment on above: Performed By: #### C BC #### [facility] [address] [place] [address] Dr. Kai Hdz Neutrophils/100 WBC (Bld) 48.7 % Normal 43.0-75.0 [facility] Comment on above: Performed By: #### C BC #### [facility] [address] [place] [address] Dr. Kai Hdz Platelet mean volume (Bld) [Entitic vol] 9.4 fL Critically low 9.5-13.5 [facility] Comment on above: Performed By: #### C BC #### [facility] [address] [place] [address] Dr. Kai Hdz PLT 296 103/ul Normal 150-450 [facility] Comment on above: Performed By: #### C BC #### [facility] [address] [place] [address] Dr. Kai Hdz RBC 4.68 106/ul Normal 4.20-5.40 [facility] Comment on above: Performed By: #### C BC #### [facility] [address] [place] [address] Dr. Kai Hdz WBC 7.6 103/ul Normal 4.0-11.0 [facility] Comment on above: Performed By: #### C BC #### [facility] [address] [place] [address] Dr. Kai Hdz FREE THYROXINE INDEX T7on FTI 2.43 Normal [facility] Comment on above: Performed By: #### L IPID, CMP, T7, TSH #### [facility] [address] [place] [address] [address] Kai Hdz T3U 32.0 % Normal 23.5-40.5 [facility] Comment on above: Performed By: #### L IPID, CMP, T7, TSH #### [facility] [address] [place] [address] [address] Kai Hdz T4 [Mass/Vol] 7.60 ug/dL Normal 5.53-11.00 [facility] Comment on above: Performed By: #### L IPID, CMP, T7, TSH #### [facility] [address] [place] [address] [address] Kia Hdz GLYCOHEMOGLOBIN A1Con 2021 ADA RECOMMENDATION ADA THERAPEUTIC TARGET 6.0 - 7.0 ACTION SUGGESTED > 7.0 Normal [facility] Comment on above: Performed By: #### A 1C ####[facility] [address] [place] [address]Dr. Kai Hdz Glucose [Mass/Vol] 111 mg/dL Normal [facility] Comment on above: Performed By: #### A 1C ####[facility] [address] [place] [id number]. Kai Hdz HbA1c (Bld) [Mass fraction] 5.5 % Normal <=6.0 [facility] Comment on above: Performed By: #### A 1C ####[facility] [address] [place] [address]Dr. Kai Hdz LIPID PROFILEon 01-21-2022 CHOL-HDL RATIO NORM SEE BELOW Normal [facility] Comment on above: Result Comment: 3.3 - 4.4 LOW RISK 4.4 - 7.1 AVERAGE RISK 7.1 - 11.0 MODERATE RISK >11.0 HIGH RISK Performed By: #### L IPID, CMP, T7, TSH #### [facility] [address] [place] [address] [address] Kai Hdz Cholesterol [Mass/Vol] 211 mg/dL Critically high <=200 [facility] Comment on above: Performed By: #### L IPID, CMP, T7, TSH #### [facility] [address] [place] [address] [address] Kai Hdz Cholesterol in HDL [Mass/Vol] 38 mg/dL Critically low 40-60 [facility] Comment on above: Performed By: #### L IPID, CMP, T7, TSH #### [facility] [address] [place] [address] [address] Kai Hdz Cholesterol in LDL [Mass/Vol] 121.4 mg/dL Normal [facility] Comment on above: Performed By: #### L IPID, CMP, T7, TSH #### [facility] [address] [place] [address] [address] Kai Hdz Cholesterol.total/Cho lesterol in HDL [Mass ratio] 5.6 {ratio} Normal [facility] Comment on above: Performed By: #### L IPID, CMP, T7, TSH #### [facility] [address] [place] [address] [address] Kai Hdz HDL NORMAL > or = 60 mg/dl - LOW CARDIOVASCULAR RISK <40 mg/dl - HIGH CARDIOVASCULAR RISK Normal [facility] Comment on above: Performed By: #### L IPID, CMP, T7, TSH #### [facility] [address] [place] [address] [address] Kai Hdz LDL CALC NORMAL SEE BELOW Normal [facility] Comment on above: Result Comment: <100 mg/dl OPTIMAL 100 - 129 mg/dl NEAR OR ABOVE OPTIMAL 130 - 159 mg/dl BORDERLINE HIGH 160 - 189 mg/dl HIGH >190 mg/dl VERY HIGH Performed By: #### L IPID, CMP, T7, TSH #### [facility] [address] [place] [address] [address] Kai Hdz Triglyceride [Mass/Vol] 258 mg/dL Critically high <=150 [facility] Comment on above: Performed By: #### L IPID, CMP, T7, TSH #### [facility] [address] [place] [address] [address] Kai Hdz VLDL CALC 51.6 mg/dL Normal [facility] Comment on above: Performed By: #### L IPID, CMP, T7, TSH #### [facility] [address] [place] [address] Dr. Kai Hdz PROF 14(COMP METB)on 022 Albumin [Mass/Vol] 3.7 g/dL Normal 3.4-5.0 [facility] Comment on above: Performed By: #### L IPID, CMP, T7, TSH #### [facility] [address] [place] [address] Dr. Kai Hdz Albumin/Globulin [Mass ratio] 1.1 {ratio} Normal [facility] Comment on above: Performed By: #### L IPID, CMP, T7, TSH #### [facility] [address] [place] [address] Dr. Kai Hdz ALP [Catalytic activity/Vol] 73 U/L Normal 46-116 [facility] Comment on above: Performed By: #### L IPID, CMP, T7, TSH #### [facility] [address] [place] [address] Dr. Kai Hdz ALT [Catalytic activity/Vol] 19 U/L Normal 14-59 [facility] Comment on above: Performed By: #### L IPID, CMP, T7, TSH #### [facility] [address] [place] [address] Dr. Kai Hdz Anion gap [Moles/Vol] 16.5 mmol/L Normal [facility] Comment on above: Performed By: #### L IPID, CMP, T7, TSH #### [facility] [address] [place] [address] Dr. Kai Hdz AST [Catalytic activity/Vol] 16 U/L Normal 15-37 [facility] Comment on above: Performed By: #### L IPID, CMP, T7, TSH #### [facility] [address] [place] [address] Dr. Kai Hdz Bilirubin [Mass/Vol] 0.6 mg/dL Normal 0.2-1.3 [facility] Comment on above: Performed By: #### L IPID, CMP, T7, TSH #### [facility] [address] [place] [address] Dr. Kai Hdz Calcium [Mass/Vol] 9.1 mg/dL Normal 8.5-10.1 [facility] Comment on above: Performed By: #### L IPID, CMP, T7, TSH #### [facility] [address] [place] [address] [address] Kai Hdz Chloride [Moles/Vol] 104 mmol/L Normal 98-107 [facility] Comment on above: Performed By: #### L IPID, CMP, T7, TSH #### [facility] [address] [place] [address] [address] Kai Hdz CO2 [Moles/Vol] 25.2 mmol/L Normal 22.0-30.0 [facility] Comment on above: Performed By: #### L IPID, CMP, T7, TSH #### [facility] [address] [place] [address] [address] Kai Hdz Creatinine [Mass/Vol] 1.06 mg/dL Critically high 0.52-1.04 [facility] Comment on above: Performed By: #### L IPID, CMP, T7, TSH #### [facility] [address] [place] [address] [address] Kai Hdz EGFR-AF LIBYAN >60 Normal >=60 [facility] Comment on above: Performed By: #### L IPID, CMP, T7, TSH #### [facility] [address] [place] [address] [address] Kai Hdz EGFR-NON AF LIBYAN 51 mL/min/1.73m2 Critically low >=60 [facility] Comment on above: Performed By: #### L IPID, CMP, T7, TSH #### [facility] [address] [place] [address] [address] Kai Hdz Globulin (S) [Mass/Vol] 3.4 g/dL Normal [facility] Comment on above: Performed By: #### L IPID, CMP, T7, TSH #### [facility] [address] [place] [address] [address] Kai Hdz Glucose [Mass/Vol] 122 mg/dL Critically high 74-106 [facility] Comment on above: Performed By: #### L IPID, CMP, T7, TSH #### [facility] [address] [place] [address] [address] Kai Hdz Potassium [Moles/Vol] 3.7 mmol/L Normal 3.4-5.0 [facility] Comment on above: Performed By: #### L IPID, CMP, T7, TSH #### [facility] [address] [place] [address] [address] Kai Hdz Protein [Mass/Vol] 7.1 g/dL Normal 6.1-8.2 [facility] Comment on above: Performed By: #### L IPID, CMP, T7, TSH #### [facility] [address] [place] [address] Dr. Kai Hdz Sodium [Moles/Vol] 142 mmol/L Normal 137-145 [facility] Comment on above: Performed By: #### L IPID, CMP, T7, TSH #### [facility] [address] [place] [address] [address] Kai Hdz Urea nitrogen [Mass/Vol] 21.0 mg/dL Critically high 7.0-18.0 [facility] Comment on above: Performed By: #### L IPID, CMP, T7, TSH #### [facility] [address] [place] [address] Dr. Kai Hdz Urea nitrogen/Creatinine [Mass ratio] 19.8 mg/mg Normal [facility] Comment on above: Performed By: #### L IPID, CMP, T7, TSH #### [facility] [address] [place] [address] Dr. Kai Hdz TSHon 01-21-2022 TSH 3.420 uIU/mL Normal 0.470-4.680 [facility] Comment on above: Performed By: #### L IPID, CMP, T7, TSH #### [facility] [address] [place] [address] Dr. Kai Hdz TSH RANGE SEE BELOW Normal [facility] Comment on above: Result Comment: <0.3 4 UIU/ml HYPERTHYROID 0.34-5.60 UIU/ml EUTHYROID >5.60 UIU/ml HYPOTHYROID Performed By: #### L IPID, CMP, T7, TSH #### [facility] [address] [place], [place] [address] Dr. Kai Hdz VITAMIN D 25 OHon 01-21-2022 VIT D 25-OH 31.1 ng/mL Normal [facility] Comment on above: Performed By: #### V ITAD ####[facility] [address] [place], [place] [address]Dr. Kai Hdz VIT D RANGES SEE BELOW Normal [facility] Comment on above: Result Comment: <20 ng/mL Vit D deficient 20 - <30 ng/mL Vit D insufficient 30 - 100 ng/mL Vit D sufficient >100 ng/mL Potential Toxicity Performed By: #### V ITAD ####[facility] [address] [place], [place] [address]FvDr. Kai Hdz US KIDNEYS BLADDERon 022 US KIDNEYS BLADDER EXAMINATION: US KIDNEYS BLADDER HISTORY: Acute cystitis COMPARISON: No relevant comparison available. TECHNIQUE: Ultrasound examination was performed of the kidneys and urinary bladder. FINDINGS: RIGHT KIDNEY: 7 mm nonobstructing stone within inferior pole. Mild cortical thinning. No hydronephrosis or mass. Kidney: 11.0 x 4.9 x 4.9 cm LEFT KIDNEY: Mild cortical thinning. No evidence of pelvocaliectasis, mass, or calculi. Normal renal cortical parenchymal echogenicity. Color Doppler demonstrates blood flow within the kidney. Kidney: 11.0 x 4.3 x 4.0 cm BLADDER: No visible wall thickening, mass, or calculi. Post void residual: 10 mL URETERAL JETS: Visualized bilaterally. IMPRESSION: 1. Nonobstructing right nephrolithiasis. 2. Mild renal cortical thinning bilaterally, likely age related. 3. No urinary bladder wall thickening or findings to suggest cystitis. Electronically authenticated by: UNIQUE PEREZ Date: 2022-01-16 10:40 Normal [facility] Vital Signs Date Time Vital Sign Value Performing Clinician Ron vernon 06-23-2022 14:01-0400 Body weight 92.53 kg Dante Palomares MD Work Phone: [facility] 06-23-2022 14:01-0400 Diastolic blood pressure 70 mm[Hg] Dante Palomares MD Work Phone: [facility] 06-23-2022 14:01-0400 Heart rate 60 /min Dante Palomares MD Work Phone: [facility] 06-23-2022 14:01-0400 Respiratory rate 16 /min Dante Palomares MD Work Phone: [facility] 06-23-2022 14:01-0400 SaO2% (BldA) [Mass fraction] 99 % Dante Palomares MD Work Phone: [facility] 06-23-2022 14:01-0400 Systolic blood pressure 117 mm[Hg] Dante Palomares MD Work Phone: [facility] Encounters Encounter Date Encounter Type Care Provider Facility Start: 08-13-2023 End: 08-13-2023 ambulatory IVONNE ÁLVAREZ Facility:[facility] Start: 08-07-2023 Refill S Ric Cee APRN.CIGARETTE TESTER Work Phone: Cardiology Comment on above: Refill Request Start: 07-09-2023 End: 07-09-2023 ambulatory Ivonne Álvarez Facility:[facility] Start: 07-09-2023 End: 07-09-2023 ambulatory MD Ivonne Álvarez Work Phone: [facility] Work Phone: Start: 07-09-2023 End: 07-09-2023 Patient encounter procedure MD Ivonne Álvarez Work Phone: [facility] Work Phone: Start: 12-24-2022 End: 12-25-[address] IVONNE ÁLVAREZ . Facility: Start: 09-24-2022 End: 09-25-2022 ambulatory BLANCA Banegas [facility] Start: 09-24-2022 End: 09-24-2022 Subsequent hospital visit by physician Ivonne Álvarez MD Work Phone: [facility] Laboratory Comment on above: Frequent UTI Start: 09-10-2022 End: 09-11-2022 ambulatory IVONNE ÁLVAREZ Facility:[facility] Start: 08-28-2022 End: 08-31-2022 ambulatory BL[facility]egas [facility] Start: 08-11-2022 End: 08-12-2022 ambulatory BLANCA Banegas [facility] Start: 08-11-2022 End: 08-11-2022 Subsequent hospital visit by physician Ivonne Álvarez MD Work Phone: [facility] Laboratory Comment on above: Mixed incontinence; Frequent UTI Start: 07-29-2022 End: 07-30-2022 ambulatory JAZZY RILEY [facility] Start: 07-29-2022 End: 07-29-2022 Subsequent hospital visit by physician Ivonne Álvarez MD Work Phone: [facility] Laboratory Comment on above: Screening for vagina l cancer; Urinary incontinence, unspecified type Start: 06-23-2022 End: 06-23-2022 Patient encounter procedure Dante Palomares MD Work Phone: Cardiology Comment on above: Essential hypertensi on (Primary Dx); Mixed hyperlipidemia Start: 04-02-2022 End: 04-02-2022 Patient encounter procedure MD [facility]vonne [facility]varez [facility] Start: 03-06-2022 Refill S Ric Cee APRN.CNP Work Phone: Cardiology Comment on above: Refill Request Essential hypertensi on (Primary Dx) PRISCILA (acute kidney in jury) (HCC) (Primary Dx) Start: 01-27-2022 End: 01-27-[address] IVONNE ÁLVAREZ . Facility:[facility] Start: 01-21-2022 End: 01-22-[address] IVONNE ÁLVAREZ . Facility:[facility] Start: 01-16-2022 End: 01-17-[address] IVONNE ÁLVAREZ . Facility:[facility] Procedures Date Procedure Procedure Detail Performing Clinician Start: 07-09-2023 Screening mammograph y of bilateral breasts MD Ivonne Álvarez Work Phone: Start: 09-24-2022 Urnls dip stick/tabl et reagent auto microscopy Blanca Melo MD Work Phone: Start: 09-10-2022 Lipid 1996 panel - S pravin or Plasma ANNE Cee APRN.CIGARETTE TESTER Work Phone: Start: 08-11-2022 Urnls dip stick/tabl et reagent auto microscopy Blanca Melo MD Work Phone: Start: 04-02-2022 Screening mammograph y of bilateral breasts MD Ivonne Álvarez Work Phone: Start: 12-03-2015 Adult depression scr eening assessment ANNE eCe APRN.CIGARETTE TESTER Work Phone: Plan of Treatment Date Care Activity Detail Author Start: 09-10-2027 Lipid 1996 panel - Serum or Plasma Lipid Screening [facility] Start: 01-23-2026 LIPID SCREEN LIPID SCREEN [facility] Start: 07-17-2025 Diabetes Screening Diabetes Screenin g [facility] Start: 03-20-2025 DIABETES SCREEN DIABETES SCREEN [facility] Start: 03-06-2025 DIABETES SCREEN DIABETES SCREEN [facility] Start: 01-24-2024 DIABETES SCREEN DIABETES SCREEN [facility] Start: 09-10-2023 Lipid panel Lipids [facility] Start: 08-10-2023 End: 11-09-2023 Basic metabolic 2000 panel - Serum or Plasma BASIC METABOLIC PNL Lab Routine Essential hypertension Expected: 08/10/2023, Expires: 11/09/2023 [facility] Work Phone: Comment on above: Expected: 08/10/2023 , Expires: 11/09/2023 Start: 07-30-2023 End: 07-30-2023 Patient encounter procedure 07/30/2023 Office Visit Obstetrics and Gynecology Jazzy Riley, LOCAL SALES ASSOCIATE - CNM [address] [place] [address] [facility] Start: 06-23-2023 BP CONTROLLED (<130/80) BP CONTROLLE D (<130/80) [facility] Start: 06-12-2023 Covid-19 Vaccine ( season) Covid-19 Vaccine () [facility] Start: 06-12-2023 Influenza vaccination Influenza Vacc ine (#1) [facility] Start: 11-19-2022 End: 11-19-2022 Patient encounter procedure 11/19/2022 Office Visit [facility] Start: 10-12-2022 Advance Directive Discussion Advance Directive Discussion [facility] Start: 10-12-2022 Depression Assessment Depression Ass essment [facility] Start: 09-22-2022 End: 11-22-2022 Lipid 1996 panel - Serum or Plasma LIPID PANEL BASIC Lab Routine Essential hypertension Mixed hyperlipidemia Expected: 09/22/2022, Expires: 11/22/2022 [facility] Work Phone: Comment on above: Expected: 09/22/2022 , Expires: 11/22/2022 Start: 09-03-2022 End: 09-03-2022 Patient encounter procedure 09/03/2022 Procedure visit [facility] Start: 08-28-2022 End: 08-28-2022 Patient encounter procedure 08/28/[address] [facility] CT Scan Start: 07-29-2022 Annual Wellness Visi t (AWV) Annual Wellness Visit (AWV) [facility] Start: 06-23-2022 End: 08-23-2022 CBC panel - Blood by Automated count CBC Lab Routine Essential hypertension Mixed hyperlipidemia Expected: 06/23/2022, Expires: 08/23/2022 [facility] Work Phone: Comment on above: Expected: 06/23/2022 , Expires: 08/23/2022 Start: 06-23-2022 End: 08-23-2022 Comprehensive metabolic 2000 panel - Serum or Plasma COMP METABOLIC PANEL Lab Routine Essential hypertension Mixed hyperlipidemia Expected: 06/23/2022, Expires: 08/23/2022 [facility] Work Phone: Comment on above: Expected: 06/23/2022 , Expires: 08/23/2022 Start: 06-12-2022 Influenza vaccination C [facility] Start: 05-12-2022 Influenza vaccination Flu vaccine (# 1) [facility] Start: 04-03-2022 COVID-19 Vaccine (5 - Booster for Pfizer series) COVID-19 Vaccine (5 - Booster for Pfizer series) [facility] Start: 03-06-2022 End: 05-06-2022 Basic metabolic 2000 panel - Serum or Plasma BASIC METABOLIC PNL Lab Routine PRISCILA (acute kidney injury) (HCC) Expected: 03/06/2022, Expires: 05/06/2022 [facility] Work Phone: Comment on above: Expected: 03/06/2022 , Expires: 05/06/2022 Start: 10-12-2021 ADVANCE DIRECTIVE DISCUSSION ADVANCE DIRECTIVE DISCUSSION [facility] Start: 04-08-2019 Pneumococcal 65+ yea rs Vaccine (2 - PPSV23 if available, else PCV20) Pneumococcal 65+ years Vaccine (2 - PPSV23 if available, else PCV20) [facility] Start: 04-08-2019 Pneumococcal 65+ yea rs Vaccine (2 - PPSV23 or PCV20) Pneumococcal 65+ years Vaccine (2 - PPSV23 or PCV20) [facility] Start: 04-08-2019 Pneumococcal Vaccine : 65+ (2 - PPSV23 or PCV20) Pneumococcal Vaccine: 65+ (2 - PPSV23 or PCV20) [facility] Start: 2017 BONE DENSITY BONE DENSITY [facility] Start: 2017 Bone Density Screening Bone Density Screening [facility] Start: 2017 PNEUMOCOCCAL: 65+ (1 - PCV) PNEUMOCOCCAL: 65+ (1 - PCV) [facility] Start: 12-03-2016 Adult depression screening assessment DEPRESSION SCREENING [facility] Start: 2012 RSV Vaccine (1 - 1-d ose 60+ series) RSV Vaccine (1 - 1-dose 60+ series) [facility] Start: 2007 Screening for osteoporosis DEXA (modify frequency per FRAX score) [facility] Start: 2002 Screening for malign ant neoplasm of breast Breast cancer screen [facility] Start: 2002 Shingles vaccine (1 of 2) Shingles vaccine (1 of 2) [facility] Start: 2002 SHINGRIX VACCINE (1 of 2) SHINGRIX VACCINE (1 of 2) [facility] Start: 1997 COLOGUARD (FIT-DNA) COLOGUARD (FIT-D NA) [facility] Start: 1997 Colonoscopy COLONOSCOPY [facility] Start: 1997 COLORECTAL CANCER SCREENING COLORECTAL CANCER SCREENING [facility] Start: [address] COLONOGRAPHY [facility] Start: 1997 FECAL OCCULT BLOOD FECAL OCCULT BLOO D [facility] Start: 1997 Screening for malign ant neoplasm of colon [facility] Start: 1997 SIGMOIDOSCOPY SIGMOIDOSCOPY [facility] Start: 1992 Mammography [facility] Start: 1987 Diabetes screen Diabetes screen [facility] [employer] Start: 1971 DTaP/Tdap/Td vaccine (1 - Tdap) DTaP/Tdap/Td vaccine (1 - Tdap) [facility] Start: 1971 Urine microalbumin profile [facility] Start: 1970 ANNUAL PCP TEAM MAKE READY WORKER AYE DISEASE VISIT ANNUAL PCP TEAM CHRONIC DISEASE VISIT [facility] Start: 1970 BP CONTROLLED (<130/80) BP CONTROLLE D (<130/80) [facility] Start: 1970 HEPATITIS C [facility] Start: 1970 Hepatitis C screening Hepatitis C [facility] Start: 1964 Depression Screen Depression Screen [facility] Start: 1962 Lipid panel Lipids [facility] End: 07-29-2022 Culture, Urine [facility] Work Phone: Comment on above: 1 Occurrences starti ng 07/29/2022 until 07/29/2022 End: 08-11-2022 Culture, Urine [facility] Phone: Comment on above: 1 Occurrences starti ng 08/11/2022 until 08/11/2022 End: 09-24-2022 Culture, Urine [facility] Phone: Comment on above: 1 Occurrences starti ng 09/24/2022 until 09/24/2022 End: 07-29-2022 Cytopathology procedure, preparation of smear, genital source PAP SMEAR Lab Routine Screening for vaginal cancer 1 Occurrences starting 07/29/2022 until 07/29/2022 [facility] Work Phone: Comment on above: 1 Occurrences starti ng 07/29/2022 until 07/29/2022 End: 03-06-2023 ECG COMPLETE ECG COMPLETE ECG Routine Essential hypertension 1 Occurrences starting 03/06/2022 until 03/06/2023 [facility] Work Phone: Comment on above: 1 Occurrences starti ng 03/06/2022 until 03/06/2023 [facility] c Immunizations Immunization Date Immunization Notes Care Provider [facility] 08-01-2022 influenza virus vaccine, unspecified formulation ANNE Cee APRN.CNP Work Phone: [facility] 12-09-2020 COVID-19 mRNAKeylairchris (Pfizer) MD Ivonne Álvarez Work Phone: [facility] 11-19-2020 COVID-19 Leona Doty (Pfizer) MD Ivonne Álvarez Work Phone: [facility] Payers Date Payer Category Payer Self-pay [id number] [address] [facility] AARP SUPPLEMENT [id number] 2019-Present [phone] [address] [place] [address] Indemnity [id number] [facility] AARP SUPPLEMENT [id number] 2019-Present [phone] [address] [place] [address] Indemnity [id number] 2017 Medicare MEDICARE MEDICAR E A AND B [id number] 2017-Present [phone] [place] [address] Medicare [id number] 2017 Medicare MEDICARE MEDICAR E A AND B [id number] 2017-Present [phone] [place] [address] Medicare [id number] 1959 Medicare [id number] 1959 Unknown [id number] 1952 Unknown [id number] 1952 Unknown [id number] 1952 Unknown [id number] 1952 Unknown [id number] 1952 Unknown [id number] 1952 Unknown [id number] 1952 Unknown [id number] 1952 Unknown [id number] Private Health Insurance [employer] [id number] Unknown [id number] Social History Date Type Detail Facility Start: 12-03-2015 End: 05-28-2020 Tobacco smoking status NHIS Never smoked tobacco [facility] Start: 12-03-2015 End: 05-28-2020 Tobacco use and exposure Smokeless tobacco non-user [facility] Start: 12-10-2020 End: 06-23-2022 Alcohol intake Current drinker of alcohol (finding) [facility] Start: 06-11-2020 History SDOH Alcohol Frequency 3 [facility] Start: 12-03-2015 History SDOH Alcohol Comment occasionally [facility] Start: 1950 Sex Assigned At Female [facility] Start: 02-24-2022 End: 06-23-2022 Exposure to SARS-CoV-2 (event) Not sure [facility] Start: 07-29-2022 History SDOH Alcohol Comment occasional [facility] Phone: Start: 1950 Sex Assigned At Not on file [facility] Phone: Start: 06-11-2020 End: 11-08-2022 History of Social function [facility] Start: 06-11-2020 End: 11-08-2022 Alcohol Use Disorder Identification Test - Consumption [AUDIT-C] [facility] How often to you hav e a drink containing alcohol? 2-4 times a month [facility] Average Number of Drinks Not on file [facility] Start: 07-04-2020 Gender identity Identifies as female gender (finding) [facility] Start: 07-04-2020 Sexual orientation Heterosexual (finding) [facility] Clinical Notes 03-06-2022 to 08-10-2023 Telephone Encounter - Reba Cee APRN.CNP - 08/10/2023 7:52 AM Ace Palomares MD - 06/23/2022 2:06 PM EDTTelephone Encounter - Reba Cee APRN.CNP - 03/06/2022 10:22 AM EDT Note Date & Type Note Facility 08-10-2023 Miscellaneous Notes Formattin g of this note is different from the original. The following approved medication requests have been transmitted electronically. Requested Prescriptions Signed Prescriptions Disp Refills chlorthalidone (HYGROTON) 25 mg tablet 90 tablet 3 Sig: Take 1 tablet by mouth once daily. Authorizing Provider: Reba CEE APRN.CIGARETTE TESTER documented in this encounter [facility] 06-23-2022 History of Presen t illness Narrative Images from the original note were not included. [facility] [place] Vickie [facility]er Department of Cardiovascular Medicine SECTION OF CLINICAL CARDIOLOGY OUTPATIENT VISIT DATE June 23, 2022 OUTPATIENT VISIT TYPE ESTABLISHED PRIMARY CARE PHYSICIAN: Ivonne Álvarez MD [address] [place] [address] CHIEF COMPLAINT: Follow-up Feeling well HISTORY OF PRESENT ILLNESS: Ms. Valdez is a very pleasant 72-year-old woman who was last seen in the cardiology clinic 12/10/2020. States that she is feeling well with no new symptoms since the last visit. Her prior symptoms of shortness of breath have essentially resolved and are not noticeable during daily activities. Her blood pressures are well controlled. Her dose of chlorthalidone was previously reduced because of a mild increase in creatinine which subsequently stabilized. Has not had follow-up lab testing PAST MEDICAL HISTORY Diagnosis Date Arthritis Gout Hyperlipemia Hypertension Vitamin D deficiency PAST SURGICAL HISTORY Procedure Laterality Date PAST SURGICAL HISTORY OF breast reduction PAST SURGICAL HISTORY OF carpal tunnel PAST SURGICAL HISTORY OF hysterectomy PAST SURGICAL HISTORY OF RT. toe SOCIAL HISTORY Social History Tobacco Use Smoking status: Never Smokeless tobacco: Never Vaping Use Vaping Use: Never used Substance Use Topics Alcohol use: Yes Comment: occasionally Drug use: Never FAMILY HISTORY Problem Relation Age of Onset Cancer Father renal Heart Attack Father Heart Failure Father Hypertension Father Hyperlipidemia Father other (MS) Sister Hypertension Mother Heart disease Maternal Grandmother Heart disease Paternal Grandmother ALLERGIES: ALLERGIES No Known Allergies MEDICATIONS: cholecalciferol, vitamin D3, (VITAMIN D3 ORAL) Take 1,000 mg by mouth once daily. chlorthalidone (HYGROTON) 25 mg tablet Take 1 tablet by mouth once daily. (Patient taking differently: Take 12.5 mg by mouth once daily.) pantoprazole DR (PROTONIX) 40 mg tablet Take 1 tablet by mouth once daily. dicyclomine (BENTYL) 20 mg tablet Take 20 mg by mouth twice daily. lisinopril (ZESTRIL, PRINIVIL) 40 mg tablet Take 1 tablet by mouth once daily. lovastatin (MEVACOR) 20 mg tablet Take 20 mg by mouth daily at bedtime. oxybutynin (DITROPAN) 5 mg tablet Take 5 mg by mouth twice daily. diclofenac, EC, (VOLTAREN) 75 mg EC tablet Take 75 mg by mouth once daily. allopurinol (ZYLOPRIM) 300 mg tablet Take 300 mg by mouth once daily. ACETAMINOPHEN (TYLENOL ORAL) Take by mouth. PHYSICAL EXAMINATION: BP 117/70 (BP Site: Left Arm) Pulse 60 Resp 16 Wt 92.5 kg (204 lb) SpO2 99% BMI 36.14 kg/m General: Well appearing, in no acute distress. Skin: No clubbing. No cyanosis. Eyes: EOMI Neck: Supple, JVP normal Lungs: Clear to auscultation bilaterally. Heart: Regular rhythm. PMI 5th ICS LMCL, S1nl, S2nl. No murmur, added sounds or rub Extremities: No peripheral edema bilaterally. Neuro: Oriented x3, alert, cooperative, gait coordinated. CARDIOVASCULAR MEDICINE TESTING: ECG -sinus bradycardia, otherwise normal ECG reviewed IMPRESSION / RECOMMENDATIONS: 1. Hypertension controlled. Continue current medical therapy. 2. Hyperlipidemia -continue statin. 3. History of dyspnea. Now resolved. She had previously undergone cardiac testing 05/31 with low risk test results indicating a low likelihood of severe epicardial CAD. Normal LV systolic function. - Updated labs. She will get them done at [facility] and let us know once this is accomplished CONTACT INFORMATION: Dante Palomares M.D. [facility] Department of Cardiovascular Medicine [facility] [place] [facility] Desk B4[address] [address] Office - [phone] extension [phone] Office Appointments: [phone] extension [phone] documented in this encounter [facility] 03-06-2022 Miscellaneous Notes The following approved medication requests have been transmitted electronically. Signed Prescriptions Disp Refills chlorthalidone (HYGROTON) 25 mg tablet 90 tablet 3 Sig: Take 1 tablet by mouth once daily. RADHA: No Authorizing Provider: Reba CEE Recommend follow up with Dr Palomares in the next 3 months. Ric Cee APRN.CIGARETTE TESTER documented in this encounter [facility] Evaluation note Diagnosis Essential hypertension Unspecified essential hypertension documented in this encounter [facility] note* Diagnosis Essential hypertension- Primary Unspecified essential hypertension documented in this encounter [facility] note* Diagnosis PRISCILA (acute kidney injury) (HCC)- Primary Acute kidney failure, unspecified documented in this encounter [facility] noteNo assessment information [facility] Work Phone: Evaluation note* Diagnosis Essential hypertension- Primary Unspecified essential hypertension Mixed hyperlipidemia documented in this encounter [facility] note* Diagnosis Screening for vaginal cancer Special screening for malignant neoplasms, vagina Urinary incontinence, unspecified type documented in this encounter [facility] [address] Phone: evaluation note* Diagnosis Mixed incontinence Mixed incontinence urge and stress (male)(female) Frequent UTI Urinary tract infection, site not specified documented in this encounter [facility] [address] Phone: evaluation note* Diagnosis Frequent UTI Urinary tract infection, site not specified documented in this encounter [facility] [address] Phone: evaluation note* Diagnosis Essential hypertension Unspecified essential hypertension documented in this encounter [facility] for referral (narrative)* Outpatient Procedure (Routine) - Authorized Specialty Diagnoses / Procedures Referred By Contac t Referred To Contact [facility] Diagnoses Essential hypertension Procedures ECG COMPLETE ECG ROUTINE ECG W/LEAST 12 LDS W/I&R Dante Palomares MD [address] [place] [address] [facility] [place] [address] Referral ID Status Reason Start Date Expiration Date Visits Requested Visits Authorized [id number] Authorized Auto-Generat ed Referral 03/06/2022 03/06/2023 1 1 [facility] Chief Complaint and Reason for Visit Chief Complaint Screening Family History No Family History Records Found Relationship Condition Age at Onset Recorded Date/T zulma father Cardiovascular disease Unknown Multiple myeloma Unknown Advance Directives No Advanced Directives Records Found Advance Directive Response Recorded Date/ Time Advance Directives No November 10, 2019 1:38pm Summary Purpose Additional Source Comments Source Comments (unrecognize d section and content) In the event this informatio n is protected by the Federal Confidentiality of Alcohol and Drug Abuse Patient Records regulations: The Federal rules restrict any use of the information to criminally investigate or prosecute any alcohol or drug abuse patient.[facility] the event this information is protected by the Federal Confidentiality of Alcohol and Drug Abuse Patient Records regulations: The Federal rules restrict any use of the information to criminally investigate or prosecute any alcohol or drug abuse patient.[facility] the event this information is protected by the Federal Confidentiality of Alcohol and Drug Abuse Patient Records regulations: The Federal rules restrict any use of the information to criminally investigate or prosecute any alcohol or drug abuse patient.[facility] the event this information is protected by the Federal Confidentiality of Alcohol and Drug Abuse Patient Records regulations: The Federal rules restrict any use of the information to criminally investigate or prosecute any alcohol or drug abuse patient.[facility] the event this information is protected by the Federal Confidentiality of Alcohol and Drug Abuse Patient Records regulations: The Federal rules restrict any use of the information to criminally investigate or prosecute any alcohol or drug abuse patient.[facility] Reason for Visit (unrecogniz ed section and content) Reason Onset Date Comments Refill Request 03/06/2022 Reason Onset Date Comments Refill Request 08/07/2023 Care Teams (unrecognized sec tion and content) Team Status: Active Member Role Status Dates Ivonne Álvarez MD Primary Care Provider Active Team Status: Inactive Member Role Status Dates Ivonne Álvarez MD Primary Care Provider Active Referral Self Attending Provider Active Jazzy Riley APRN Referring Provider Active Assistant Technician Relationship Specialty Start Date End Date Ivonne Álvarez MD PCP - General Family Practice 12/03/15 Assistant Technician Relationship Specialty Start Date End Date Ivonne Álvarez MD PCP - General Family Practice 12/03/15 Assistant Technician Relationship Specialty Start Date End Date Ivonne Álvarez MD PCP - [facility] 12/03/15 Team Status: Inactive Member Role Status Dates Ivonne Álvarez MD Primary Care Provider Active Referral Self Attending Provider Active Assistant Technician Relationship Specialty Start Date End Date Ivonne Álvarez MD PCP - [facility] 12/03/15 Assistant Technician Relationship Specialty Start Date End Date Ivonne Álvarez MD [address] [id number] PCP - General 06/16/13 Assistant Technician Relationship Specialty Start Date End Date Ivonne Álvarez MD [address] [place] [address] PCP - General 06/16/13 Assistant Technician Relationship Specialty Start Date End Date Ivonne Álvarez MD [address] [place] [address] PCP - General 06/16/13 Assistant Technician Relationship Specialty Start Date End Date Ivonne Álvarez MD PCP - General Family Medicine 12/03/15 Goals (unrecognized section and content) Goals may be documented in a n alternate sectionGoals may be documented in an alternate section INFORMATION SOURCE (unrecogn ized section and content) DATE CREATED AUTHOR 10/01/2022 [facility] DATE CREATED AUTHOR AUTHOR'S ORGANIZ ATION 01/03/2023 [facility] DATE CREATED AUTHOR AUTHOR'S ORGANIZ ATION 07/20/2023 [facility] DATE CREATED AUTHOR AUTHOR'S ORGANIZ ATION 08/15/2023 [facility] FOR RECORDS PERTAINING TO PATIENTS WHO ARE OR HAVE BEEN ENROLLED IN A CHEMICAL DEPENDENCY/SUBSTANCEABUSE PROGRAM, SOME INFORMATION MAY BE OMITTED. This clinical summary was aggregated from multiple sources. Caution should be exercised in using it in the provision of clinical care. This summary normalizes information from multiple sources, and as a consequence, information in this document may materially change the coding, format and clinical context of patient data. In addition, data may be omitted in some cases. CLINICAL DECISIONS SHOULD BE BASED ON THE PRIMARY CLINICAL RECORDS. [facility] provides no warranty or guarantee of the accuracy or completeness of information in this document.
[2024-01-29 14:54] LABS: Bilirubin Urine NEGATIVE (NEGATIVE); Blood Urine NEGATIVE (NEGATIVE); Clarity Urine CLEAR (CLEAR); Color Urine LT. YELLOW (YELLOW); Glucose Urine UA NEGATIVE (NEGATIVE); Ketones Urine NEGATIVE (NEGATIVE); Leukocyte Esterase Urine TRACE (NEGATIVE); Nitrite Urine POSITIVE (NEGATIVE); Protein Urine NEGATIVE (NEG/TRACE); Specific Gravity Urine 1.015 (1.005-1.025); Urobilinogen Urine 0.2 EU/dL (0.2-1.0); pH Urine 6.5 (5.0-9.0)
[2024-01-29 15:11] LABS: Bacteria Urine LARGE #/HPF (NONE SEEN); Cast Seen? NONE SEEN #/LPF (NONE SEEN); Crystals Seen? None Seen #/HPF (None Seen); Mucus Urine NONE SEEN (NONE SEEN); RBC Urine NONE SEEN #/HPF (0-2); Squamous Epithelial Cell Urine RARE #/LPF (NONE/RARE); WBC Urine 0-2 #/HPF (NONE SEEN)
== END 2024-01-29 14:13 | disposition home or self-care (01) ==
LOC: LAB 14:13
PROVIDERS: PCP Family Medicine; Visit Provider Family Medicine
DX: R30.0 Dysuria (principal)
CPT/HCPCS: 81001; 87086; 87150; 87186

== ENCOUNTER 2024-12-29 11:47 | Outpatient (OUT) | payer MEDICARE, SELFPAY ==
--- OUTSIDE RECORDS SUMMARY | 2024-12-29 11:55 | XMS_ITS | CCD ---
Author Organization [facility] [employer] Care Team Providers Care International Sourcing Manager Name Role Phone Ivonne Álvarez MD Primary Care Provider MD Ivonne Álvarez Primary Care Provider Self, Referral Attending Provider Unavailable Ivonne Álvarez MD Primary Care Provider Ivonne Álvarez MD Primary Care Provider Ivonne Álvarez MD Primary Care Provider EDWARD ., DR CORONADO Admitting Unavailable HOY ., [...] Unavailable HOY ., DR CORONADO Consulting Unavailable HOY ., DR CORONADO Admitting Unavailable HOY ., DR CORONADO Attending Unavailable HOY ., DR CORONADO Primary Care Unavailable MCKENZIEY ., DR CORONADO Consulting Unavailable MD Ivonne Álvarez Primary Care Provider Self, Referral Attending Provider Unavailable MAIN Riley Referring Provider Ivonne Álvarez MD Primary Care Provider IVONNE ÁLVAREZ Primary Care Unavailable IVONNE ÁLVAREZ Primary Care Unavailable DANTE PALOMARES MD Referring Unavailable MD Ivonne Álvarez Primary Care Provider MAIN Riley Attending Provider MAIN Riley Referring Provider IVONNE ÁLVAREZ Primary Care Unavailable JAZZY RILEY Referring Unavailjohnson e Jazzy Riley Attending Unavailable Jazzy Riley Referring Unavailable Ivonne Álvarez Primary Care Unavailable Jazzy Riley Admitting Unavailable Medications Current Medications Medication Drug Class(es) Dates Sig (Normalized) Sig (Original) acetaminophen 325 mg oral capsule (11 sources) Start: 03-26-2021 Acetaminophen (Tylenol) 325 mg Capsule Active 500 MG PO Daily March 26, 2021 12:00am take 1 tablet by laura th every six hours as needed for pain acetaminophen (TYLENOL) 500 MG tablet Ta ke 500 mg by mouth every 6 hours as needed for Pain 0 Active ACETAMINOPHEN (T YLENOL ORAL) Take by mouth. 0 Active Comment on above: Take by mouth. allopurinol 300 mg oral tablet (11 sources) Xanthine Oxidase Inhibitor Start: 03-26-20 take 300 mg by mouth once daily Allopurinol Active 300 MG PO Daily March 26, 2021 12:00am Comment on above: Take 300 mg by mouth once daily. chlorthalidone 25 mg oral tablet (13 sources) Thiazide-like Diuretic Start: 08-10-20 23 take 1 tablet by mouth once daily chlorthalidone (HYGROTON) 25 mg tablet Indications: Essential hypertension Take 1 tablet by mouth once daily. 90 tablet 3 08/10/2023 Active Start: 02-26-2021 End: 08-07-2023 take 25 mg by mouth once daily Chlorthalidone Active 25 MG PO Daily March 26, 2021 12:00am Comment on above: Take 1 tablet by laura th once daily. cholecalciferol 0.05 mg oral capsule (6 sources) Vitamin D Start: 03-26-20 take 1 capsule by mouth once daily Cholecalciferol (Vitamin D3) (Vitamin D3) 50 mcg (2,000 unit) Capsule Active 50 MCG PO Daily March 26, 2021 12:00am Cholecalciferol (VITAMIN D3) 125 MCG (5000 UT) TABS Take by mouth 0 Active ciprofloxacin 500 mg oral tablet (2 sources) Quinolone Antimicrobial Start: 08-04-2022 take 1 tablet by mouth twice daily ciprofloxacin (CIPRO) 500 MG tablet TAKE 1 TABLET BY MOUTH TWICE DAILY 0 08/04/2022 Active diclofenac sodium 75 mg delayed release oral tablet (11 sources) Nonsteroidal Anti-inflammatory Drug Start: 06-28-2022 take 1 tablet by mouth twice daily diclofenac (VOLTAREN) 75 MG EC tablet TAKE 1 TABLET BY MOUTH TWICE DAILY 0 06/28/2022 Active Start: 03-26-2021 take 75 mg by mouth once daily Diclofenac Sodium Active 75 MG PO Daily March 26, 2021 12:00am Comment on above: Take 75 mg by mouth once daily. lisinopril 40 mg oral tablet (11 sources) Angiotensin Converting Enzyme Inhibitor Start: 0 take 40 mg by mouth once daily Lisinopril Active 40 MG PO Daily March 26, 2021 12:00am Comment on above: Take 1 tablet by laura th once daily. lovastatin 20 mg oral tablet (11 sources) HMG-CoA Reductase Inhibitor Start: 1 take 20 mg by mouth once daily Lovastatin Active 20 MG PO Daily March 26, 2021 12:00am Comment on above: Take 20 mg by [...] Active oxybutynin chloride 5 mg oral tablet (11 sources) Cholinergic Muscarinic Antagonist Start: 1 take 5 mg by mouth once daily Oxybutynin Chloride Active 5 MG PO Daily March 26, 2021 12:00am take 1 tablet by mouth twice lew ly oxybutynin (DITROPAN) 5 mg tablet Take 5 mg by mouth twice daily. 0 Active Comment on above: Take 5 mg by mouth t wice daily. pantoprazole 40 mg delayed release oral tablet (10 sources) Proton Pump Inhibitor Start: 2 take 1 tablet by mouth once daily pantoprazole (PROTONIX) 40 MG tablet TAKE 1 TABLET BY MOUTH ONCE DAILY 0 05/11/2022 Active Start: 03-26-2021 take 20 mg by mouth once daily Pantoprazole Active 20 MG PO Daily March 26, 2021 12:00am Comment on above: Take 1 tablet by laura th once daily. Completed/Discontinued Medications Medication Drug Class(es) [...] Take 20 mg by mouth twice daily. Problems Active Problems Problem Classification Problem Date Documented Date Episodic/Chronic Acute and unspecified renal failure (1 source) Acute injury of kidney; Translations: [Acute kidney failure, unspecified] Episodic Deficiency and other anemia (1 source) Anemia, unspecified; Translations: [ANEMIA UNSPECIFIED] Onset: 01-02-2023 Episodic Diabetes mellitus without complication (1 source) Other abnormal glucose; Translations: [OTHER ABNORMAL GLUCOSE] Onset: 01-02-2023 Episodic Disorders of lipid metabolism (7 sources) Mixed hyperlipidemia; Translations: [Mixed hyperlipidemia] Onset: 01-21-2022 Chronic Esophageal disorders (8 sources) Laryngopharyngeal reflux; Translations: [Gastro-esophageal reflux disease without esophagitis] Onset: 07-06-2020 07-06-2020 Chronic Essential hypertension (9 sources) Essential hypertension; Translations: [Essential (primary) hypertension] Onset: 09-10-2022 Chronic Gastritis and duodenitis (3 sources) Gastritis; Translations: [Gastritis, unspecified, without bleeding] 03-26-2021 Episodic Genitourinary symptoms and ill-defined conditions (2 sources) Urinary incontinence; Translations: [Unspecified urinary incontinence] Chronic Genitourinary symptoms and ill-defined conditions (1 source) Unspecified abnormal findings in urine; Translations: [Unspecified abnormal findings in urine] Onset: 08-03-2024 Episodic Nutritional deficiencies (1 source) Vitamin D deficiency, unspecified; Translations: [VITAMIN D DEFICIENCY UNSPECIFIED] Onset: 01-02-2023 Chronic Other non-traumatic joint disorders (1 source) Pain in left hip; Translations: [PAIN IN LEFT HIP] Onset: 01-02-2023 Episodic Other screening for suspected conditions (not mental disorders or infectious disease) (10 sources) Patient encounter status; Translations: [Encounter for screening for malignant neoplasm of colon] Onset: 01-27-2022 03-26-2021 Episodic Spondylosis; intervertebral disc disorders; other back problems (5 sources) Cervical spondylosis without myelopathy; Translations: [Spondylosis without myelopathy or radiculopathy, cervical region] Onset: 12-03-2015 12-03-2015 Chronic Past or Other Problems Problem Classification Problem [...] Onset: 12-03-2015 12-03-2015 Episodic Urinary tract infections (6 sources) Recurrent urinary tract infection; Translations: [Urinary tract infection, site not specified] Onset: 01-16-2022 Episodic Results Test Name Value Interpretation Reference Range Facility Cult,Urineon 08-05-2024 Cult,Urine Specimen Description .CLEAN CATCH URINE Special Requests Site: Urine Culture ESCHERICHIA COLI >100,000 CFU/ML Report Status FINAL 08/05/2024 SUSCEPTIBILITY Organism ESCHERICHIA COLI Method RC Ampicillin 8 SUSCEPTIBLE Cefazolin <=4 SUSCEPTIBLE Cefazolin sensitivity results can be used to predict the effectiveness of oral cephalosporins (eg. Cephalexin) in uncomplicated Urinary Tract Infections due to E. coli, K. pneumoniae, and P. mirabilis Ceftriaxone <=0.25 SUSCEPTIBLE ESBL NEGATIVE Gentamicin <=1 SUSCEPTIBLE Levofloxacin <=0.12 SUSCEPTIBLE Nitrofurantoin <=16 SUSCEPTIBLE Piperacillin/Tazobac morales <=4 SUSCEPTIBLE Tobramycin <=1 SUSCEPTIBLE Trimethoprim/Sulfa <=20 SUSCEPTIBLE Susceptible [facility] Comment on above: Performed By: #### U #### [facility] [employer] [address] [place] [id number] Gelatin Maker Utility: Rishi Perez MD [facility] [address] [place] [address] Gelatin Maker Utility: Sang Aburto MD MM screening mammo BI w/CADo n 08-04-2024 MM screening mammo BI w/CAD [facility] Main [place] [address] [place] [address] Mammography Report Signed Patient: Monique Vladez MR#: [id number] : 1950 Acct:[id number] Age/Sex: 74 / F ADM Date: 08/04/24 Loc: [place] Room: Type: [facility] Attending Dr: Jazzy Riley CHILD CARE TEAM LEAD Copies to: MD Jazzy Enrique CNM Ordering Provider: Jazzy Riley CNM Date of Service: 08/04/24 MM/MM screening mammo BI w/CAD: SCREENING BILATERAL Screening Full Field digital mammogram with 3-D imaging. Full field digital CC and MLO imaging performed. CAD utilized. COMPARISON: 07/09/2023 HISTORY: Annual screening BREAST COMPOSITION: The breast is almost entirely fatty. BREAST CALCIFICATIONS: Benign calcifications present. VASCULAR CALCIFICATIONS: None ARCHITECTURAL DISTORTION: None BREAST NODULE: None AXILLARY LYMPH NODES: Normal POSTSURGICAL CHANGES: [...] NEXT MAMMOGRAM. Impression dictated by: Pipo Waller M.D.08/04/2024 3:22 PM Dictation Location: [facility] Transcribed By: [facility] 08/04/24 152 Dictated By: Pipo Waller DO 08/04/24 1518 Signed By: 08/04/24 152 Normal [facility] Urinalysis, Routineon 2023 Bilirubin, SemiQt,Ur Negative Normal NEG [facility] Comment on above: Performed By: #### U ACITLALLI #### [facility] [address] [place], [place] [id number] Gelatin Maker Utility: Sang Aburto MD Blood, Urine Negative Normal NEG [facility] Comment on above: Performed By: #### U A, UMICAO #### [facility] [address] [place] [address] [place], [place] [id number] Gelatin Maker Utility: Sang Aburto MD Clarity (U) Clear Normal CLEAR [facility] Comment on above: Performed By: #### U A, UMICAO #### [facility] [address] [place] [address] [place], [place] [id number] Gelatin Maker Utility: aSng Aburto MD Color (U) Yellow Normal YEL [facility] Comment on above: Performed By: #### U A, UMICAO #### [facility] [address] [place] [address] Dr[place], [place] [id number] Gelatin Maker Utility: Sang Aburto MD Glucose Ql (U) Negative Normal NEG [facility] Comment on above: Performed By: #### U A, UMICAO #### [facility] [address] [place] [address] Dr[place], [place] [id number] Gelatin Maker Utility: Sang Aburto MD Ketones Ql (U) Negative Normal NEG [facility] Comment on above: Performed By: #### U A, UMICAO #### [facility] [address] [place] [address] Dr[place], [place] [id number] Gelatin Maker Utility: Sang Aburto MD Leukocyte esterase Test strip Ql (U) SMALL Abnormal NEG [facility] Comment on above: Performed By: #### U A, UMICAO #### [facility] [address] [place] [address] Dr[place], [place] [id number] Gelatin Maker Utility: Sang Aburto MD Nitrite,Ur Positive Abnormal NEG [facility] Comment on above: Performed By: #### U A, UMICAO #### [facility] [address] [place] [address] Dr[place], [place] [id number] Gelatin Maker Utility: Sang Aburto MD PH,Ur 6.0 Normal 5.0-9.0 [facility] Comment on above: Performed By: #### U AYULIYAICAO #### [facility] [address] [place] [address] Dr[place], [place] [id number] Gelatin Maker Utility: Sang Aburto MD Protein Ql (U) Negative Normal NEG [facility] Comment on above: Performed By: #### U A, UMICAO #### [facility] [address] [place] [address] Dr[place], [place] [id number] Gelatin Maker Utility: Sang Aburto MD Spec. Bronson,Ur 1.020 Normal 1.010-1.020 [facility] Comment on above: Performed By: #### U A, YULIYAICAO #### [facility] [address] [place] [address] [place], [place] [id number] Gelatin Maker Utility: Sang Aburto MD Urobilinogen,Ur Normal Normal 0.0-1.0 [facility] Comment on above: Performed By: #### U ADEEO #### [address] [place], [place] [id number] Gelatin Maker Utility: Sang Aburto MD Urinalysis,Microon 4 Bacteria 4+ Abnormal NONE [facility] Comment on above: Performed By: #### U A, YULIYAICAO #### [facility] [address] [place] [address] [place], [place] [id number] Gelatin Maker Utility: Sang Aburto MD Epithelial cells LM Ql (Urine sed) 2 TO 5 Normal 0-25 [facility] Comment on above: Performed By: #### U AYULIYAICAO #### [address] [place], [place] [id number] Gelatin Maker Utility: Sang Aburto MD Urine RBC's None Normal 0-2 [facility] Comment on above: Performed By: #### U A, CITLALLI #### [facility] [address] [place] [address] Gelatin Maker Utility: Sang Aburto MD Urine WBC's 20 TO 50 Normal 0-5 [facility] Comment on above: Performed By: #### U ACITLALLI #### [facility] [address] [place] [address] Gelatin Maker Utility: Sang Aburto MD Basic metabolic 2000 panelon 08-13-2023 Anion gap [Moles/Vol] 8 mmol/L Low 9-18 [facility] Comment on above: Order Comment: Speci men Type: BLOOD SPECIMEN Ordering Facility: [facility] Address: [address] [place] [address] Performed By: #### 2 4321-2 #### [facility] CLIA [id number] [address] [place] [address] Calcium [Mass/Vol] 9.3 mg/dL Normal 8.5-10.2 [facility] Comment on above: Order Comment: Speci men Type: BLOOD SPECIMEN Ordering Facility: [facility] Address: [address] [place] [address] Performed By: #### 2 4321-2 #### [facility] CLIA [id number] [address] [place] [address] Chloride [Moles/Vol] 103 mmol/L Normal 97-105 [facility] Comment on above: Order Comment: Speci men Type: BLOOD SPECIMEN Ordering Facility: [facility] Address: [address] [place] [address] Performed By: #### 2 4321-2 #### [facility] CLIA [id number] [address] [place] [address] CO2 [Moles/Vol] 29 mmol/L Normal 22-30 [facility] Comment on above: Order Comment: Speci men Type: BLOOD SPECIMEN Ordering Facility: [facility] Address: [address] [place] [address] Performed By: #### 2 4321-2 #### [facility] CLIA [id number] [address] [place] [address] Creatinine [Mass/Vol] 0.92 mg/dL Normal 0.58-0.96 [facility] Comment on above: Order Comment: Taty mosquera Type: BLOOD SPECIMEN Ordering Facility: [facility] Address: [address] [place] [address] Performed By: #### 2 4321-2 #### [facility] CLIA [id number] [address] [place] [address] Creatinine and Glomerular filtration rate.predicted panel (S/P/Bld) 67 mL/min/1.73m??? Normal >=60 [facility] Comment on above: Order Comment: Taty mosquera Type: BLOOD SPECIMEN Ordering Facility: [facility] Address: [address] [place] [address] Result Comment: Nallely mated Glomerular Filtration Rate [...] GFR. Performed By: #### 2 4321-2 #### [facility] CLIA [id number] [address] [place] [address] Glucose [Mass/Vol] 119 mg/dL High 74-99 [facility] Comment on above: Order Comment: Taty mosquera Type: BLOOD SPECIMEN Ordering Facility: [facility] Address: [address] [place] [address] Result Comment: The [place] [employer] (ADA) provides guidance for cutoff [...] Standards of Medical Care in Diabetes 2016, [place] [employer]. Diabetes Care. 2016.39(Suppl 1). Performed By: #### 2 4321-2 #### [facility] CLIA [id number] [address] [place] [address] Potassium [Moles/Vol] 3.8 mmol/L Normal 3.7-5.1 [facility] Comment on above: Order Comment: Speci men Type: BLOOD SPECIMEN Ordering Facility: [facility] Address: [address] [place] [address] Performed By: #### 2 4321-2 #### [facility] CLIA [id number] [address] [place] [address] Sodium [Moles/Vol] 140 mmol/L Normal 136-144 [facility] Comment on above: Order Comment: Speci men Type: BLOOD SPECIMEN Ordering Facility: [facility] Address: [address] [place] [address] Performed By: #### 2 4321-2 #### [facility] CLIA [id number] [address] [place] [address] Urea nitrogen [Mass/Vol] 19 mg/dL Normal 7-21 [facility] Comment on above: Order Comment: Speci men Type: BLOOD SPECIMEN Ordering Facility: [facility] Address: [address] [place] [address] Performed By: #### 2 4321-2 #### [facility] CLIA [id number] [address] [place] [address] INSULINon 12-25-2022 Insulin 14.0 uIU/mL Normal 2.6-24.9 [facility] Comment on above: Performed By: #### I NSULIN ####[facility] [id number] [place] [address]DrLucio Hdz CBC AUTO DIFFon 12-24-2022 BASO # 0.1 103/ul Normal 0.0-0.1 [facility] Comment on above: Performed By: #### C BC #### [facility] Laboratory [address] [place] [address] Dr. Kai Hdz Basophils/100 WBC (Bld) 1.0 % Normal 0.2-2.0 [facility] Comment on above: Performed By: #### C BC #### [facility] [address] [place] [address] Dr. Kai Hdz EO # 0.2 103/ul Normal 0.0-0.7 [facility] Comment on above: Performed By: #### C BC #### [facility] [address] [place] [address] Dr. Kai Hdz Eosinophils/100 WBC (Bld) 2.7 % Normal 0.9-7.0 [facility] Comment on above: Performed By: #### C BC #### [facility] [address] [place] [address] Dr. Kai Hdz Erythrocyte distribution width (RBC) [Ratio] 14.5 % Normal 11.0-15.0 [facility] Comment on above: Performed By: #### C BC #### [facility] [address] [place] [address] Dr. Kai Hdz Hematocrit (Bld) [Volume fraction] 42.0 % Normal 36.0-48.0 [facility] Comment on above: Performed By: #### C BC #### [facility] [address] [place] [address] Dr. Kai Hdz Hemoglobin (Bld) [Mass/Vol] 13.5 g/dL Normal 12.0-16.0 [facility] Comment on above: Performed By: #### C BC #### [facility] [address] [place] [address] Dr. Kai Hdz IG # 0.02 10e3/ul Normal 0.00-0.03 [facility] Comment on above: Performed By: #### C BC #### [facility] [address] [place] [address] Dr. Kai Hdz IG % 0.3 % Normal 0.0-0.5 [facility] Comment on above: Performed By: #### C BC #### [facility] [address] [place] [address] Dr. Kai Hdz LYMPH # 3.3 103/ul Normal 1.2-3.8 [facility] Comment on above: Performed By: #### C BC #### [facility] [address] [place] [address] Dr. Kai Hdz Lymphocytes/100 WBC (Bld) 47.2 % Normal 20.5-60.0 [facility] Comment on above: Performed By: #### C BC #### [facility] [address] [place] [address] Dr. Kai Hdz MANUAL DIFF REQ NO Normal [facility] Comment on above: Performed By: #### C BC #### [facility] [address] [place] [address] Dr. Kai Hdz MCH (RBC) [Entitic mass] 28.7 pg Normal 26.7-34.0 [facility] Comment on above: Performed By: #### C BC #### [facility] [address] [place] [address] Dr. Kai Hdz MCHC (RBC) [Mass/Vol] 32.1 g/dL Normal 29.9-35.2 [facility] Comment on above: Performed By: #### C BC #### [facility] [address] [place] [address] Dr. Kai Hdz MCV (RBC) [Entitic vol] 89.2 fL Normal 81.0-99.0 [facility] Comment on above: Performed By: #### C BC #### [facility] [address] [place] [address] Dr. Kai Hdz MONO # 0.4 103/ul Normal 0.3-0.8 [facility] Comment on above: Performed By: #### C BC #### [facility] [address] [place] [address] Dr. Kai Hdz Monocytes/100 WBC (Bld) 5.0 % Normal 1.7-12.0 [facility] Comment on above: Performed By: #### C BC #### [facility] [address] [address] [address] Kai Hdz NEUT # 3.1 103/ul Normal 1.4-6.5 [facility] Comment on above: Performed By: #### C BC #### [facility] [address] [place] [address] Dr. Kai Hdz Neutrophils/100 WBC (Bld) 43.8 % Normal 43.0-75.0 [facility] Comment on above: Performed By: #### C BC #### [facility] [address] [place] [address] Dr. Kai Hdz Platelet mean volume (Bld) [Entitic vol] 9.0 fL Critically low 9.5-13.5 [facility] Comment on above: Performed By: #### C BC #### [facility] [address] [place] [address] Dr. Kai Hdz PLT 243 103/ul Normal 150-450 [facility] Comment on above: Performed By: #### C BC #### [facility] [address] [place] [address] Dr. Kai Hdz RBC 4.71 106/ul Normal 4.20-5.40 [facility] Comment on above: Performed By: #### C BC #### [facility] [address] [place] [address] Dr. Kai Hdz WBC 7.0 103/ul Normal 4.0-11.0 [facility] Comment on above: Performed By: #### C BC #### [facility] [address] [place] [address] Dr. Kai Hdz FREE THYROXINE INDEX T7on FTI 2.71 Normal 1.30-4.50 [facility] Comment on above: Performed By: #### C MP, TSH, T7, LIPID ####[facility] [id number] [place] [address]Dr. Kai Hdz T3U 33.0 % Normal 30.0-39.0 [facility] Comment on above: Performed By: #### C MP, TSH, T7, LIPID ####[facility] [id number] [place], [place] [address]IgLucio Hdz T4 [Mass/Vol] 8.20 ug/dL Normal 4.80-13.90 [facility] Comment on above: Performed By: #### C MP, TSH, T7, LIPID ####[facility] [id number] [place], [place] [address]Xn. Kai Hdz GLYCOHEMOGLOBIN A1Con 2022 ADA RECOMMENDATION SEE BELOW Normal [facility] Comment on above: Result Comment: ADA RECOMMENDED LIMIT 4.0 - 6.0 ADA THERAPEUTIC TARGET < 7.0 ACTION SUGGESTED > 7.0 Performed By: #### A 1C ####[facility] [id number] [place] [id number] Hdz Glucose [Mass/Vol] 105 mg/dL Normal [facility] [place] Comment on above: Performed By: #### A 1C ####[facility] [id number] [place] [id number] Hdz HbA1c (Bld) [Mass fraction] 5.3 % Normal 4.5-6.2 [facility] Comment on above: Performed By: #### A 1C ####[facility] [id number] [place] [id number]. Kai Hdz IRONon 12-24-2022 Iron [Mass/Vol] 89.0 ug/dL Normal 50.0-170.0 [facility] Comment on above: Performed By: #### V ITAD, IRON ####[facility] [id number] [place] [id number] Hdz LIPID PROFILEon 12-24-2022 CHOL-HDL RATIO NORM SEE BELOW Normal [facility] Comment on above: Result Comment: 3.3 - 4.4 LOW RISK 4.4 - 7.1 AVERAGE RISK 7.1 - 11.0 MODERATE RISK >11.0 HIGH RISK Performed By: #### C MP, TSH, T7, LIPID #### [facility] Laboratory [address] [place], [place] [address] Dr. Kai Hdz Cholesterol [Mass/Vol] 246 mg/dL Critically high <=200 [facility] Comment on above: Performed By: #### C MP, TSH, T7, LIPID #### [facility] Laboratory [address] [place] [address] [address] Kai Hdz Cholesterol in HDL [Mass/Vol] 43 mg/dL Normal 40-60 [facility] Comment on above: Performed By: #### C MP, TSH, T7, LIPID #### [facility] Laboratory [address] [place] [address] [address] Kai Hdz Cholesterol in LDL [Mass/Vol] 158.2 mg/dL Normal [facility] Comment on above: Performed By: #### C MP, TSH, T7, LIPID #### [facility] Laboratory [address] [place] [address] [address] Kai Hdz Cholesterol.total/Cho lesterol in HDL [Mass ratio] 5.7 {ratio} Normal [facility] Comment on above: Performed By: #### C MP, TSH, T7, LIPID #### [facility] Laboratory [address] [place] [address] [address] Kai Hdz HDL NORMAL > or = 60 mg/dl - LOW CARDIOVASCULAR RISK <40 mg/dl - HIGH CARDIOVASCULAR RISK Normal [facility] Comment on above: Performed By: #### C MP, TSH, T7, LIPID #### [facility] Laboratory [address] [place] [address] [address] Kai Hdz LDL CALC NORMAL SEE BELOW Normal [facility] Comment on above: Result Comment: <100 mg/dl OPTIMAL 100 - 129 mg/dl NEAR OR ABOVE OPTIMAL 130 - 159 mg/dl BORDERLINE HIGH 160 - 189 mg/dl HIGH >190 mg/dl VERY HIGH Performed By: #### C MP, TSH, T7, LIPID #### [facility] Laboratory [address] [place] [address] [address] Kai Hdz Triglyceride [Mass/Vol] 224 mg/dL Critically high <=150 [facility] Comment on above: Performed By: #### C MP, TSH, T7, LIPID #### [facility] Laboratory [address] [place] [address] [address] Kai Hdz VLDL CALC 44.8 mg/dL Normal [facility] Comment on above: Performed By: #### C MP, TSH, T7, LIPID #### [facility] Laboratory [address] [place] [address] [address] Kai Hdz OCC BLD IMMUNO SCREENon 12-10 OCCULT BLOOD Negative Normal NEGATIVE [facility] Comment on above: Performed By: #### O BSCRN ####[facility] [id number] [place] [address]Dr. Kai Hdz PROF 14(COMP METB)on 023 Albumin [Mass/Vol] 3.7 g/dL Normal 3.4-5.0 [facility] Comment on above: Performed By: #### C MP, TSH, T7, LIPID #### [facility] Laboratory [address] [place] [address] [address] Kai Hdz Albumin/Globulin [Mass ratio] 1.2 {ratio} Normal [facility] Comment on above: Performed By: #### C MP, TSH, T7, LIPID #### [facility] Laboratory [address] [place] [address] [address] Kai Hdz ALP [Catalytic activity/Vol] 84 U/L Normal 46-116 [facility] Comment on above: Performed By: #### C MP, TSH, T7, LIPID #### [facility] Laboratory [address] [place] [address] [address] Kai Hdz ALT [Catalytic activity/Vol] 17 U/L Normal 14-59 [facility] Comment on above: Performed By: #### C MP, TSH, T7, LIPID #### [facility] Laboratory [address] [place] [address] [address] Kai Hdz Anion gap [Moles/Vol] 8.8 mmol/L Normal [facility] Comment on above: Performed By: #### C MP, TSH, T7, LIPID #### [facility] Laboratory [address] [place] [address] [address] Kai Hdz AST [Catalytic activity/Vol] 17 U/L Normal 15-37 [facility] Comment on above: Performed By: #### C MP, TSH, T7, LIPID #### [facility] Laboratory [address] [place] [address] [address] Kai Hdz Bilirubin [Mass/Vol] 0.7 mg/dL Normal 0.2-1.0 [facility] Comment on above: Performed By: #### C MP, TSH, T7, LIPID #### [facility] Laboratory [address] [place] [address] [address] Kai Hdz Calcium [Mass/Vol] 9.2 mg/dL Normal 8.5-10.1 [facility] Comment on above: Performed By: #### C MP, TSH, T7, LIPID #### [facility] Laboratory [address] [place] [address] [address] Kai Hdz Chloride [Moles/Vol] 104 mmol/L Normal 98-107 [facility] Comment on above: Performed By: #### C MP, TSH, T7, LIPID #### [facility] Laboratory [address] [place] [address] Dr. Kai Hdz CO2 [Moles/Vol] 29.2 mmol/L Normal 21.0-32.0 [facility] Comment on above: Performed By: #### C MP, TSH, T7, LIPID #### [facility] Laboratory [address] [place] [address] Dr. Kai Hdz Creatinine [Mass/Vol] 0.78 mg/dL Normal 0.55-1.02 [facility] Comment on above: Performed By: #### C MP, TSH, T7, LIPID #### [facility] Laboratory [address] [place] [address] Dr. Kai Hdz EGFR-AF ICELANDIC >60 Normal >=60 [facility] Comment on above: Performed By: #### C MP, TSH, T7, LIPID #### [facility] Laboratory [address] [place] [address] Dr. Kai Hdz EGFR-NON AF ICELANDIC >60 Normal >=60 [facility] Comment on above: Performed By: #### C MP, TSH, T7, LIPID #### [facility] Laboratory [address] [place] [address] [address] Kai Hdz Globulin (S) [Mass/Vol] 3.2 g/dL Normal [facility] Comment on above: Performed By: #### C MP, TSH, T7, LIPID #### [facility] Laboratory [address] [place] [address] Dr. Kai Hdz Glucose [Mass/Vol] 110 mg/dL Critically high 74-106 [facility] Comment on above: Performed By: #### C MP, TSH, T7, LIPID #### [facility] Laboratory [address] [place] [address] Dr. Kai Hdz Potassium [Moles/Vol] 4.0 mmol/L Normal 3.5-5.1 [facility] Comment on above: Performed By: #### C MP, TSH, T7, LIPID #### [facility] Laboratory [address] [place] [address] Dr. Kai Hdz Protein [Mass/Vol] 6.9 g/dL Normal 6.4-8.2 [facility] Comment on above: Performed By: #### C MP, TSH, T7, LIPID #### [facility] Laboratory [address] [place] [address] Dr. Kai Hdz Sodium [Moles/Vol] 138 mmol/L Normal 136-145 [facility] Comment on above: Performed By: #### C MP, TSH, T7, LIPID #### [facility] Laboratory [address] [place] [address] Dr. Kai Hdz Urea nitrogen [Mass/Vol] 24.0 mg/dL Critically high 7.0-18.0 [facility] Comment on above: Performed By: #### C MP, TSH, T7, LIPID #### [facility] Laboratory [address] [place] [address] Dr. Kai Hdz Urea nitrogen/Creatinine [Mass ratio] 30.8 mg/mg Normal [facility] Comment on above: Performed By: #### C MP, TSH, T7, LIPID #### [facility] Laboratory [address] [place] [address] Dr. Kai Hdz TSHon 12-24-2022 TSH 3.414 uIU/mL Normal 0.358-3.740 [facility] Comment on above: Performed By: #### C MP, TSH, T7, LIPID #### [facility] Laboratory [address] [place], [place] [address] Dr. Kai Hdz VITAMIN D 25 OHon 12-24-2022 VIT D 25-OH 26.7 ng/mL Normal [facility] Comment on above: Performed By: #### V TOMAS, IRON ####[facility] [id number] [place], [place] [address]GdLucio Hdz VIT D RANGES SEE BELOW Normal [facility] Comment on above: Result Comment: <20 ng/mL Vit D deficient 20 - <30 ng/mL Vit D insufficient 30 - 100 ng/mL Vit D sufficient >100 ng/mL Potential Toxicity Performed By: #### V TOMAS, IRON ####[facility] [id number] [place] [id number] Hdz XR HIPS KOFI 5V W PELVISon [...] by: UNIQUE PEREZ Date: 2022-12-24 15:01 Normal [facility] Urinalysis with Microscopico n 09-24-2022 Bacteria, UA 4+ Abnormal None [facility] Mila [facility] Bilirubin Urine Negative NEGATIVE [facility] [employer] Color, UA Yellow Yellow [facility] Epithelial Cells UA 0 TO 2 [facility] [place] [facility] Glucose, Ur Negative NEGATIVE [facility] Interpretation and review of laboratory results Abnormal [facility] Ketones Ql (U) Negative NEGATIVE [facility] Leukocyte esterase Test strip Ql (U) TRACE Abnormal NEGATIVE [facility] Nitrite, Urine Positive Abnormal NEGATIVE [facility] [employer] pH, UA 6.0 5.0 - 9.0 [facility] [employer] Protein, UA Negative NEGATIVE [facility] RBC, UA 0 TO 2 [facility] Specific Bronson, UA 1.025 High 1.010 - 1.020 B ON [facility] Turbidity UA Clear Clear [facility] Urine Hgb Negative NEGATIVE [facility] Urobilinogen, Urine Normal Normal [facility] [employer] WBC, UA 5 TO 10 [facility] Lipid 1996 panelon 2 Cholesterol [Mass/Vol] 218 mg/dL High <200 [facility] Comment on above: Order Comment: Speci men Type: BLOOD SPECIMEN Ordering Facility: [facility] Address: [address] [place] [address] Result Comment: <200 mg/dL, Desirable 200-239 mg/dL, Borderline high >239 mg/dL, High Performed By: #### 2 4331-1 #### [facility] CLIA [id number] [address] [place] [address] STATES OF [facility] Cholesterol in HDL [Mass/Vol] 38 mg/dL Low >39 [facility] Comment on above: Order Comment: Speci men Type: BLOOD SPECIMEN Ordering Facility: [facility] Address: [address] [place] [address] Result Comment: 40-5 9 mg/dL, Acceptable >59 mg/dL, High: Negative risk factor for coronary heart disease <40 mg/dL, Low: Positive risk factor for coronary heart disease Performed By: #### 2 4331-1 #### [facility] CLIA [id number] [facility] [place] [address] [place] Cholesterol in LDL [Mass/Vol] 148 mg/dL High <100 [facility] Comment on above: Order Comment: Speci men Type: BLOOD SPECIMEN Ordering Facility: [facility] Address: [address] [place] [address] Result Comment: <100 mg/dL, Optimal 100-129 mg/dL, Near optimal/above optimal 130-159 mg/dL, Borderline high 160-189 mg/dL, High >189 mg/dL, Very high Secondary prevention optimal LDL Cholesterol levels are recommended to be < 70 mg/dL Performed By: #### 2 4331-1 #### [facility] CLIA [id number] [address] [place] [address] [place] Cholesterol in LDL/Cholesterol in HDL [Mass ratio] 3.89 {ratio} High <2.54 [facility] Comment on above: Order Comment: Taty mosquera Type: BLOOD SPECIMEN Ordering Facility: [facility] Address: [address] [place] [address] Result Comment: Refe rence: 1. National Cholesterol Education Program ATP III Guideline At-A-Glance Quick Desk Reference: National Heart, Lung, and Blood [place]. National Institutes of Health. 2001: NIH Publication No. 01-3305. 2. An International Atherosclerosis Society position paper: global recommendations for the management of dyslipidemia: executive summary, Atherosclerosis. 2014: 232(2):410-413. Performed By: #### 2 4331-1 #### [facility] CLIA [id number] [address] [place] [address] [place] Cholesterol in VLDL [Mass/Vol] 32 mg/dL High <30 [facility] Comment on above: Order Comment: Taty mosquera Type: BLOOD SPECIMEN Ordering Facility: [facility] Address: [address] [place] [address] Performed By: #### 2 4331-1 #### [facility] IA [id number] [address] [place] [address] [place] Cholesterol non HDL [Mass/Vol] 180 mg/dL High <130 [facility] Comment on above: Order Comment: Taty mosquera Type: BLOOD SPECIMEN Ordering Facility: [facility] Address: [address] [place] [address] Result Comment: <130 mg/dL, Optimal 130-159 mg/dL, Near optimal/above optimal 160-189 mg/dL, Borderline high 190-219 mg/dL, High >219 mg/dL, Very high Secondary prevention optimal non HDL Cholesterol levels are recommended to be <100 mg/dL Performed By: #### 2 4331-1 #### [facility] CLIA [id number] [address] [place] [address] [place] Cholesterol.total/Cho lesterol in HDL [Mass ratio] 5.74 {ratio} High <5.10 [facility] Comment on above: Order Comment: Speci men Type: BLOOD SPECIMEN Ordering Facility: [facility] Address: [address] [place] [address] Performed By: #### 2 4331-1 #### [facility] CLIA [id number] [address] [place] [address] [place] FASTING TIME 12 hrs Normal [facility] Comment on above: Order Comment: Speci men Type: BLOOD SPECIMEN Ordering Facility: [facility] Address: [address] [place] [address] Performed By: #### 2 4331-1 #### [facility] CLIA [id number] [address] [place] [address] [place] Triglyceride [Mass/Vol] 162 mg/dL High <150 [facility] Comment on above: Order Comment: Speci men Type: BLOOD SPECIMEN Ordering Facility: [facility] Address: [address] [place] [address] Result Comment: <150 mg/dL, Normal 150-199 mg/dL, Borderline high 200-499 mg/dL, High >499 mg/dL, Very high Performed By: #### 2 4331-1 #### [facility] CLIA [id number] [address] [place] [address] [place] Urinalysis with Microscopico n 08-11-2022 Bacteria, UA 1+ Abnormal None [facility] [employer] Bilirubin Urine SMALL Abnormal NEGATIVE [facility] [employer] Color, UA Yellow Yellow [facility] [employer] Epithelial Cells UA 5 TO 10 [facility] [employer] Glucose, Ur Negative NEGATIVE [facility] Interpretation and review of laboratory results Abnormal [facility] Ketones Ql (U) TRACE Abnormal NEGATIVE [facility] Leukocyte esterase Test strip Ql (U) Negative NEGATIVE [facility] Mucus, UA 2+ Abnormal None [facility] Nitrite, Urine Negative NEGATIVE [facility] pH, UA 5.5 5.0 - 9.0 [facility] Protein, UA TRACE Abnormal NEGATIVE [facility] RBC, UA 0 TO 2 [facility] Specific Bronson, UA High 1.010 - 1.020 B ON [facility] Turbidity UA Clear Clear [facility] Urine Hgb Negative NEGATIVE [facility] Urobilinogen, Urine Normal Normal [facility] WBC, UA 0 TO 2 [facility] Basic metabolic 2000 panelon 03-06-2022 Anion gap [Moles/Vol] 13 mmol/L 9 - 18 mmol/L [facility] [place] [facility] Calcium [Mass/Vol] 9.8 mg/dL 8.5 - 10. 2 mg/dL [facility] [place] [facility] Chloride [Moles/Vol] 100 mmol/L 97 - 10 5 mmol/L [facility] [place] [facility] CO2 [Moles/Vol] 26 mmol/L 22 - 30 mmol/L [facility] Creatinine [Mass/Vol] 1.31 mg/dL High 0.58 - 0.96 mg/dL [facility] [place] [facility] Estimated Glomerular Filtration Rate 44 mL/min/1.73m Low >=60 mL/min/1.73m [facility] [place] [facility] Glucose [Mass/Vol] 122 mg/dL High 74 - 99 mg/dL [facility] Potassium [Moles/Vol] 3.9 mmol/L 3.7 - 5.1 mmol/L [facility] [place] [facility] Sodium [Moles/Vol] 139 mmol/L 136 - 144 mmol/L [facility] [place] [facility] Urea nitrogen [Mass/Vol] 32 mg/dL High 7 - 21 mg/dL [facility] [place] [facility] OCC BLD IMMUNO SCREENon 01-10 OCCULT BLOOD Negative Normal NEGATIVE [facility] Comment on above: Performed By: #### O BSCRN ####[facility] [id number] [place] [address]Dr. Kai Hdz CBC AUTO DIFFon 01-21-2022 BASO # 0.0 103/ul Normal 0.0-0.1 [facility] Comment on above: Performed By: #### C BC #### [facility] Laboratory [address] [place] [address] Dr. Kai Hdz Basophils/100 WBC (Bld) 0.5 % Normal 0.2-2.0 [facility] Comment on above: Performed By: #### C BC #### [facility] Laboratory [address] [place] [address] Dr. Kai Hdz EO # 0.2 103/ul Normal 0.0-0.7 [facility] Comment on above: Performed By: #### C BC #### [facility] Laboratory [address] [place] [address] Dr. Kai Hdz Eosinophils/100 WBC (Bld) 2.5 % Normal 0.9-7.0 [facility] Comment on above: Performed By: #### C BC #### [facility] Laboratory [address] [place] [address] Dr. Kai Hdz Erythrocyte distribution width (RBC) [Ratio] 14.5 % Normal 11.0-15.0 [facility] Comment on above: Performed By: #### C BC #### [facility] Laboratory [address] [place] [address] Dr. Kai Hdz Hematocrit (Bld) [Volume fraction] 42.5 % Normal 36.0-48.0 [facility] Comment on above: Performed By: #### C BC #### [facility] Laboratory [address] [place] [address] Dr. Kai Hdz Hemoglobin (Bld) [Mass/Vol] 13.6 g/dL Normal 12.0-16.0 [facility] Comment on above: Performed By: #### C BC #### [facility] Laboratory [address] [place] [address] Dr. Kai Hdz IG # 0.01 10e3/ul Normal 0.00-0.03 [facility] Comment on above: Performed By: #### C BC #### [facility] Laboratory [address] [place] [address] Dr. Kai Hdz IG % 0.1 % Normal 0.0-0.5 [facility] Comment on above: Performed By: #### C BC #### [facility] Laboratory [address] [place] [address] Dr. Kai Hdz LYMPH # 3.2 103/ul Normal 1.2-3.8 [facility] Comment on above: Performed By: #### C BC #### [facility] Laboratory [address] [place] [address] Dr. Kai Hdz Lymphocytes/100 WBC (Bld) 42.7 % Normal 20.5-60.0 [facility] Comment on above: Performed By: #### C BC #### [facility] Laboratory [address] [place] [address] Dr. Kai Hdz MANUAL DIFF REQ NO Normal [facility] Comment on above: Performed By: #### C BC #### [facility] Laboratory [address] [place] [address] Dr. Kai Hdz MCH (RBC) [Entitic mass] 29.1 pg Normal 26.7-34.0 [facility] Comment on above: Performed By: #### C BC #### [facility] Laboratory [address] [place] [address] Dr. Kai Hdz MCHC (RBC) [Mass/Vol] 32.0 g/dL Normal 29.9-35.2 [facility] Comment on above: Performed By: #### C BC #### [facility] Laboratory [address] [place] [address] Dr. Kai Hdz MCV (RBC) [Entitic vol] 90.8 fL Normal 81.0-99.0 [facility] Comment on above: Performed By: #### C BC #### [facility] Laboratory [address] [place] [address] Dr. Kai Hdz MONO # 0.4 103/ul Normal 0.3-0.8 [facility] Comment on above: Performed By: #### C BC #### [facility] Laboratory [address] [place] [address] Dr. Kai Hdz Monocytes/100 WBC (Bld) 5.5 % Normal 1.7-12.0 [facility] Comment on above: Performed By: #### C BC #### [facility] Laboratory [address] [address] [address] Kai Hdz NEUT # 3.7 103/ul Normal 1.4-6.5 [facility] Comment on above: Performed By: #### C BC #### [facility] Laboratory [address] [address] [address] Kai Hdz Neutrophils/100 WBC (Bld) 48.7 % Normal 43.0-75.0 [facility] Comment on above: Performed By: #### C BC #### [facility] Laboratory [address] [place] [address] Dr. Kai Hdz Platelet mean volume (Bld) [Entitic vol] 9.4 fL Critically low 9.5-13.5 [facility] Comment on above: Performed By: #### C BC #### [facility] Laboratory [address] [place] [address] Dr. Kai Hdz PLT 296 103/ul Normal 150-450 [facility] Comment on above: Performed By: #### C BC #### [facility] Laboratory [address] [place] [address] Dr. Kai Hdz RBC 4.68 106/ul Normal 4.20-5.40 [facility] Comment on above: Performed By: #### C BC #### [facility] Laboratory [address] [place] [address] Dr. Kai Hdz WBC 7.6 103/ul Normal 4.0-11.0 [facility] Comment on above: Performed By: #### C BC #### [facility] Laboratory [address] [place] [address] Dr. Kai Hdz FREE THYROXINE INDEX T7on FTI 2.43 Normal [facility] Comment on above: Performed By: #### L IPID, CMP, T7, TSH #### [facility] Laboratory [address] [place] [address] Dr. Kai Hdz T3U 32.0 % Normal 23.5-40.5 [facility] Comment on above: Performed By: #### L IPID, CMP, T7, TSH #### [facility] Laboratory [address] [address] [address] Kai Hdz T4 [Mass/Vol] 7.60 ug/dL Normal 5.53-11.00 [facility] Comment on above: Performed By: #### L IPID, CMP, T7, TSH #### [facility] Laboratory [address] [place], [place] [address] Dr. Kai Hdz GLYCOHEMOGLOBIN A1Con 2021 ADA RECOMMENDATION ADA THERAPEUTIC TARGET 6.0 - 7.0 ACTION SUGGESTED > 7.0 Normal [facility] Comment on above: Performed By: #### A 1C ####[facility] [id number] [place] [address]Dr. Kai Hdz Glucose [Mass/Vol] 111 mg/dL Normal [facility] Comment on above: Performed By: #### A 1C ####[facility] [id number] [id number]. Kai Hdz HbA1c (Bld) [Mass fraction] 5.5 % Normal <=6.0 [facility] Comment on above: Performed By: #### A 1C ####[facility] [id number] [place] [id number]. Kai Hdz LIPID PROFILEon 01-21-2022 CHOL-HDL RATIO NORM SEE BELOW Normal [facility] Comment on above: Result Comment: 3.3 - 4.4 LOW RISK 4.4 - 7.1 AVERAGE RISK 7.1 - 11.0 MODERATE RISK >11.0 HIGH RISK Performed By: #### L IPID, CMP, T7, TSH #### [facility] Laboratory [address] [address] [address] Kai Hdz Cholesterol [Mass/Vol] 211 mg/dL Critically high <=200 [facility] Comment on above: Performed By: #### L IPID, CMP, T7, TSH #### [facility] Laboratory [address] [address] [address] Kai Hdz Cholesterol in HDL [Mass/Vol] 38 mg/dL Critically low 40-60 [facility] Comment on above: Performed By: #### L IPID, CMP, T7, TSH #### [facility] Laboratory [address] [address] [address] Kai Hdz Cholesterol in LDL [Mass/Vol] 121.4 mg/dL Normal [facility] Comment on above: Performed By: #### L IPID, CMP, T7, TSH #### [facility] Laboratory [address] [address] [address] Kai Hdz Cholesterol.total/Cho lesterol in HDL [Mass ratio] 5.6 {ratio} Normal [facility] Comment on above: Performed By: #### L IPID, CMP, T7, TSH #### [facility] Laboratory [address] [address] [address] Kai Hdz HDL NORMAL > or = 60 mg/dl - LOW CARDIOVASCULAR RISK <40 mg/dl - HIGH CARDIOVASCULAR RISK Normal [facility] Comment on above: Performed By: #### L IPID, CMP, T7, TSH #### [facility] Laboratory [address] [address] [address] Kai Hdz LDL CALC NORMAL SEE BELOW Normal [facility] Comment on above: Result Comment: <100 mg/dl OPTIMAL 100 - 129 mg/dl NEAR OR ABOVE OPTIMAL 130 - 159 mg/dl BORDERLINE HIGH 160 - 189 mg/dl HIGH >190 mg/dl VERY HIGH Performed By: #### L IPID, CMP, T7, TSH #### [facility] Laboratory [address] [address] [address] Kai Hdz Triglyceride [Mass/Vol] 258 mg/dL Critically high <=150 [facility] Comment on above: Performed By: #### L IPID, CMP, T7, TSH #### [facility] Laboratory [address] [address] [address] Kai Hdz VLDL CALC 51.6 mg/dL Normal [facility] Comment on above: Performed By: #### L IPID, CMP, T7, TSH #### [facility] Laboratory [address] [address] [address] Kai Hdz PROF 14(COMP METB)on 022 Albumin [Mass/Vol] 3.7 g/dL Normal 3.4-5.0 [facility] Comment on above: Performed By: #### L IPID, CMP, T7, TSH #### [facility] Laboratory [address] [address] [address] Kai Hdz Albumin/Globulin [Mass ratio] 1.1 {ratio} Normal [facility] Comment on above: Performed By: #### L IPID, CMP, T7, TSH #### [facility] Laboratory [address] [address] [address] Kai Hdz ALP [Catalytic activity/Vol] 73 U/L Normal 46-116 [facility] Comment on above: Performed By: #### L IPID, CMP, T7, TSH #### [facility] Laboratory [address] [place] [address] Dr. Kai Hdz ALT [Catalytic activity/Vol] 19 U/L Normal 14-59 [facility] Comment on above: Performed By: #### L IPID, CMP, T7, TSH #### [facility] Laboratory [address] [place] [address] Dr. Kai Hdz Anion gap [Moles/Vol] 16.5 mmol/L Normal [facility] Comment on above: Performed By: #### L IPID, CMP, T7, TSH #### [facility] Laboratory [address] [place] [address] Dr. Kai Hdz AST [Catalytic activity/Vol] 16 U/L Normal 15-37 [facility] Comment on above: Performed By: #### L IPID, CMP, T7, TSH #### [facility] Laboratory [address] [address] [address] Kai Hdz Bilirubin [Mass/Vol] 0.6 mg/dL Normal 0.2-1.3 [facility] Comment on above: Performed By: #### L IPID, CMP, T7, TSH #### [facility] Laboratory [address] [place] [address] Dr. Kai Hdz Calcium [Mass/Vol] 9.1 mg/dL Normal 8.5-10.1 [facility] Comment on above: Performed By: #### L IPID, CMP, T7, TSH #### [facility] Laboratory [address] [address] [address] Kai Hdz Chloride [Moles/Vol] 104 mmol/L Normal 98-107 [facility] Comment on above: Performed By: #### L IPID, CMP, T7, TSH #### [facility] Laboratory [address] [address] [address] Kai Hdz CO2 [Moles/Vol] 25.2 mmol/L Normal 22.0-30.0 [facility] Comment on above: Performed By: #### L IPID, CMP, T7, TSH #### [facility] Laboratory [address] [address] [address] Kai Hdz Creatinine [Mass/Vol] 1.06 mg/dL Critically high 0.52-1.04 [facility] Comment on above: Performed By: #### L IPID, CMP, T7, TSH #### [facility] Laboratory [address] [place] [address] Dr. Kai Hdz EGFR-AF ICELANDIC >60 Normal >=60 [facility] Comment on above: Performed By: #### L IPID, CMP, T7, TSH #### [facility] Laboratory [address] [address] [address] Kai Hdz EGFR-NON AF ICELANDIC 51 mL/min/1.73m2 Critically low >=60 [facility] Comment on above: Performed By: #### L IPID, CMP, T7, TSH #### [facility] Laboratory [address] [address] [address] Kai Hdz Globulin (S) [Mass/Vol] 3.4 g/dL Normal [facility] Comment on above: Performed By: #### L IPID, CMP, T7, TSH #### [facility] Laboratory [address] [address] [address] Kai Hdz Glucose [Mass/Vol] 122 mg/dL Critically high 74-106 T [facility] Comment on above: Performed By: #### L IPID, CMP, T7, TSH #### [facility] Laboratory [address] [address] [address] Kai Hdz Potassium [Moles/Vol] 3.7 mmol/L Normal 3.4-5.0 [facility] Comment on above: Performed By: #### L IPID, CMP, T7, TSH #### [facility] Laboratory [address] [place] [address] Dr. Kai Hdz Protein [Mass/Vol] 7.1 g/dL Normal 6.1-8.2 [facility] Comment on above: Performed By: #### L IPID, CMP, T7, TSH #### [facility] Laboratory [address] [place] [address] Dr. Kai Hdz Sodium [Moles/Vol] 142 mmol/L Normal 137-145 [facility] Comment on above: Performed By: #### L IPID, CMP, T7, TSH #### [facility] Laboratory [address] [place] [address] Dr. Kai Hdz Urea nitrogen [Mass/Vol] 21.0 mg/dL Critically high 7.0-18.0 [facility] Comment on above: Performed By: #### L IPID, CMP, T7, TSH #### [facility] Laboratory [address] [place] [address] Dr. Kai Hdz Urea nitrogen/Creatinine [Mass ratio] 19.8 mg/mg Normal [facility] Comment on above: Performed By: #### L IPID, CMP, T7, TSH #### [facility] Laboratory [address] [place] [address] Dr. Kai Hdz TSHon 01-21-2022 TSH 3.420 uIU/mL Normal 0.470-4.680 [facility] Comment on above: Performed By: #### L IPID, CMP, T7, TSH #### [facility] Laboratory [address] [place] [address] Dr. Kai Hdz TSH RANGE SEE BELOW Normal [facility] Comment on above: Result Comment: <0.3 4 UIU/ml HYPERTHYROID 0.34-5.60 UIU/ml EUTHYROID >5.60 UIU/ml HYPOTHYROID Performed By: #### L IPID, CMP, T7, TSH #### [facility] Laboratory [address] [place] [address] Dr. Kai Hdz VITAMIN D 25 OHon 01-21-2022 VIT D 25-OH 31.1 ng/mL Normal [facility] Comment on above: Performed By: #### V ITAD ####[facility] [id number] [place], [place] [address]DxLucio Hdz VIT D RANGES SEE BELOW Normal [facility] Comment on above: Result Comment: <20 ng/mL Vit D deficient 20 - <30 ng/mL Vit D insufficient 30 - 100 ng/mL Vit D sufficient >100 ng/mL Potential Toxicity Performed By: #### V ITAD ####[facility] [id number] [place], [place] [address]Nh. Kai Hdz US KIDNEYS BLADDERon 022 US [...] by: UNIQUE PEREZ Date: 2022-01-16 10:40 Normal [facility] Vital Signs Date Time Vital Sign Value Performing Clinician Ron vernon 06-23-2022 14:01-0400 Body weight 92.53 kg Dante Palomares MD Work Phone: [facility] [place] [facility] 06-23-2022 14:01-0400 Diastolic blood pressure 70 mm[Hg] Dante Palomares MD Work Phone: [facility] [place] [facility] 06-23-2022 14:01-0400 Heart rate 60 /min Dante Palomares MD Work Phone: [facility] [place] [facility] 06-23-2022 14:010400 Respiratory rate 16 /min Dante Palomares MD Work Phone: [facility] [place] [facility] 06-23-2022 14:01-0400 SaO2% (BldA) [Mass fraction] 99 % Dante Palomares MD Work Phone: [facility] [place] [facility] 06-23-2022 14:010400 Systolic blood pressure 117 mm[Hg] Dante Palomares MD Work Phone: [facility] [place] [facility] Encounters Encounter Date Encounter Type Care Provider Facility Start: 08-04-2024 End: 08-04-2024 Patient encounter procedure MD Ivonne Álvarez Work Phone: [facility] Work Phone: Start: 08-04-2024 End: 08-04-2024 ambulatory MD Ivonne Álvarez Work Phone: [facility] Work Phone: Start: 08-03-2024 End: 08-03-2024 ambulatory IVONNE ÁLVAREZ [facility] Start: 08-13-2023 End: 08-13-2023 ambulatory IVONNE ÁLVAREZ Facility:[facility] Start: 08-07-2023 Refill S Ric Cee APRN.CNP Work Phone: Cardiology Comment on above: Refill Request Start: 07-09-2023 End: 07-09-2023 ambulatory MD Ivonne Álvarez Work Phone: [facility] Work Phone: Start: 07-09-2023 End: 07-09-2023 Patient encounter procedure MD Ivonne Álvarez Work Phone: [facility] Work Phone: Start: 12-24-2022 End: 12-25-[address] IVONNE ÁLVAREZ . Facility: Start: 09-24-2022 End: 09-24-2022 Subsequent hospital visit by physician Ivonne Álvarez MD Work Phone: [facility] Laboratory Comment on above: Frequent UTI Start: 09-10-2022 End: 09-11-2022 ambulatory IVONNE ÁLVAREZ Facility:[facility] Start: 08-11-2022 End: 08-11-2022 Subsequent hospital visit by physician Ivonne Álvarez MD Work Phone: [facility] Laboratory Comment on above: Mixed incontinence; Frequent UTI Start: 07-29-2022 End: 07-29-2022 Subsequent hospital visit by physician Ivonne Álvarez MD Work Phone: [facility] Laboratory Comment on above: Screening for vagina l cancer; Urinary incontinence, unspecified type Start: 06-23-2022 End: 06-23-2022 Patient encounter procedure Dante Palomares MD Work Phone: Cardiology Comment on above: Essential hypertensi on (Primary Dx); Mixed hyperlipidemia Start: 04-02-2022 End: 04-02-2022 Patient encounter procedure MD [facility]von[facility]varez [facility] Start: 03-06-2022 Refill S Ric Cee APRN.CNP Work Phone: Cardiology Comment on above: Refill Request Essential hypertensi on (Primary Dx) PRISCILA (acute kidney in jury) (HCC) (Primary Dx) Start: 01-27-2022 End: 01-27-[address] IVONNE ÁLVAREZ . Facility: Start: 01-21-2022 End: 01-22-[address] IVONNE ÁLVAREZ . Facility:[facility] Start: 01-16-2022 End: 01-17-[address] IVONNE ÁLVAREZ . Facility:[facility] Procedures Date Procedure Procedure Detail Performing Clinician Start: 08-04-2024 Screening mammograph y of bilateral breasts MD Ivonne Álvarez Work Phone: Start: 07-09-2023 Screening mammograph y of bilateral breasts MD Ivonne Álvarez Work Phone: Start: 09-24-2022 Urnls dip stick/tabl et reagent auto microscopy Floyd Rico MD Work Phone: Start: 09-10-2022 Lipid 1996 panel - S pravin or Plasma NA Coleman QUACH[employer] Work Phone: Start: 08-11-2022 Urnls dip stick/tabl et reagent auto microscopy Floyd Rico MD Work Phone: Start: 04-02-2022 Screening mammograph y of bilateral breasts MD Ivonne Álvarez Work Phone: Start: 12-03-2015 Adult depression scr eening assessment ANNE Cee APRN.[employer] Work Phone: Plan of Treatment Date Care Activity Detail Author Start: 09-10-2027 Lipid 1996 panel - Serum or Plasma Lipid Screening [facility] [place] [facility] Start: 01-23-2026 LIPID SCREEN LIPID SCREEN [facility] [place] [facility] Start: 07-17-2025 Diabetes Screening Diabetes Screenin g [facility] [place] [facility] Start: 03-20-2025 DIABETES SCREEN DIABETES SCREEN [facility] Start: 03-06-2025 DIABETES SCREEN DIABETES SCREEN [facility] Start: 01-24-2024 DIABETES SCREEN DIABETES SCREEN [facility] Start: 09-10-2023 Lipid panel Lipids [facility] Start: 08-10-2023 End: 11-09-2023 Basic metabolic 2000 panel - Serum or Plasma BASIC METABOLIC PNL Lab Routine Essential hypertension Expected: 08/10/2023, Expires: 11/09/2023 [facility] Work Phone: Comment on above: Expected: 08/10/2023 , Expires: 11/09/2023 Start: 07-30-2023 End: 07-30-2023 Patient encounter procedure 07/30/2023 Office Visit Obstetrics and Gynecology Jazzy Riley, CHILD CARE TEAM LEAD - CNM [address] [place] [address] [facility] Start: 06-23-2023 BP CONTROLLED (<130/80) BP CONTROLLE D (<130/80) [facility] [place] [facility] Start: 06-12-2023 Covid-19 Vaccine () Covid-19 Vaccine () [facility] [place] [facility] Start: 06-12-2023 Influenza vaccination Influenza Vacc ine (#1) [facility] [place] [facility] Start: 11-19-2022 End: 11-19-2022 Patient encounter procedure 11/19/2022 Office Visit Urology [facility] Start: 10-12-2022 Advance Directive Discussion Advance Directive Discussion [facility] [place] [facility] Start: 10-12-2022 Depression Assessment Depression Ass essment [facility] [place] [facility] Start: 09-22-2022 End: 11-22-2022 Lipid 1996 panel - Serum or Plasma LIPID PANEL BASIC Lab Routine Essential hypertension Mixed hyperlipidemia Expected: 09/22/2022, Expires: 11/22/2022 [facility] Work Phone: Comment on above: Expected: 09/22/2022 , Expires: 11/22/2022 Start: 09-03-2022 End: 09-03-2022 Patient encounter procedure [facility]03[facility] Start: 08-28-2022 End: 08-28-2022 Patient encounter procedure 08/28/2022 Appointment Radiology [facility] CT Scan Start: 07-29-2022 Annual Wellness Visi t (AWV) Annual Wellness Visit (AWV) [facility] Start: 06-23-2022 End: 08-23-2022 CBC panel - Blood by Automated count CBC Lab Routine Essential hypertension Mixed hyperlipidemia Expected: 06/23/2022, Expires: 08/23/2022 [facility] Work Phone: Comment on above: Expected: 06/23/2022 , Expires: 08/23/2022 Start: 06-23-2022 End: 08-23-2022 Comprehensive metabolic 2000 panel - Serum or Plasma COMP METABOLIC PANEL Lab Routine Essential hypertension Mixed hyperlipidemia Expected: 06/23/2022, Expires: 08/23/2022 [facility] Work Phone: Comment on above: Expected: 06/23/2022 , Expires: 08/23/2022 Start: 06-12-2022 Influenza vaccination [facility] Start: 05-12-2022 Influenza vaccination Flu vaccine (# 1) [facility] Start: 04-03-2022 COVID-19 Vaccine (5 - Booster for Pfizer series) COVID-19 Vaccine (5 - Booster for Pfizer series) [facility] Start: 03-06-2022 End: 05-06-2022 Basic metabolic 2000 panel - Serum or Plasma BASIC METABOLIC PNL Lab Routine PRISCILA (acute kidney injury) (HCC) Expected: 03/06/2022, Expires: 05/06/2022 [facility] Work Phone: Comment on above: Expected: 03/06/2022 , Expires: 05/06/2022 Start: 10-12-2021 ADVANCE DIRECTIVE DISCUSSION ADVANCE DIRECTIVE DISCUSSION [facility] [place] [facility] Start: 04-08-2019 Pneumococcal 65+ yea rs Vaccine (2 - PPSV23 if available, else PCV20) Pneumococcal 65+ years Vaccine (2 - PPSV23 if available, else PCV20) [facility] Start: 04-08-2019 Pneumococcal 65+ yea rs Vaccine (2 - PPSV23 or PCV20) Pneumococcal 65+ years Vaccine (2 - PPSV23 or PCV20) [facility] Start: 04-08-2019 Pneumococcal Vaccine : 65+ (2 - PPSV23 or PCV20) Pneumococcal Vaccine: 65+ (2 - PPSV23 or PCV20) [facility] [place] [facility] Start: 2017 BONE DENSITY BONE DENSITY [facility] [place] [facility] Start: 2017 Bone Density Screening Bone Density Screening [facility] [place] [facility] Start: 2017 PNEUMOCOCCAL: 65+ (1 - PCV) PNEUMOCOCCAL: 65+ (1 - PCV) [facility] [place] [facility] Start: 12-03-2016 Adult depression screening assessment DEPRESSION SCREENING [facility] [place] [facility] Start: 2012 RSV Vaccine (1 - 1-d ose 60+ series) RSV Vaccine (1 - 1-dose 60+ series) [facility] [place] [facility] Start: 2007 Screening for osteoporosis DEXA (modify frequency per FRAX score) [facility] Start: 2002 Screening for malign ant neoplasm of breast Breast cancer screen [facility] Start: 2002 Shingles vaccine (1 of 2) Shingles vaccine (1 of 2) [facility] Start: 2002 SHINGRIX VACCINE (1 of 2) SHINGRIX VACCINE (1 of 2) [facility] [place] [facility] Start: 1997 COLOGUARD (FIT-DNA) COLOGUARD (FIT-D NA) [facility] [place] [facility] Start: 1997 Colonoscopy COLONOSCOPY [facility] [place] [facility] Start: 1997 COLORECTAL CANCER SCREENING COLORECTAL CANCER SCREENING [facility] [place] [facility] Start: [address] COLONOGRAPHY [facility] Start: 1997 FECAL OCCULT BLOOD FECAL OCCULT BLOO D [facility] Start: 1997 Screening for malign ant neoplasm of colon [facility] Start: 1997 SIGMOIDOSCOPY SIGMOIDOSCOPY [facility] Start: 1992 Mammography [facility] [place] [facility] Start: 1987 Diabetes screen Diabetes screen [facility] Start: 1971 DTaP/Tdap/Td vaccine (1 - Tdap) DTaP/Tdap/Td vaccine (1 - Tdap) [facility] Start: 1971 Urine microalbumin profile [facility] [place] [facility] Start: 1970 ANNUAL PCP TEAM SUPERVISOR AYE DISEASE VISIT ANNUAL PCP TEAM CHRONIC DISEASE VISIT [facility] [place] [facility] Start: 1970 BP CONTROLLED (<130/80) BP CONTROLLE D (<130/80) [facility] [place] [facility] Start: 1970 HEPATITIS [facility] [place] [facility] Start: 1970 Hepatitis C [facility] Start: 1964 Depression Screen Depression Screen [facility] [employer] Start: 1962 Lipid panel Lipids [facility] [employer] End: 07-29-2022 Culture, Urine [employer] Work Phone: Comment on above: 1 Occurrences starti ng 07/29/2022 until 07/29/2022 End: 08-11-2022 Culture, Urine [employer] Phone: Comment on above: 1 Occurrences starti ng 08/11/2022 until 08/11/2022 End: 09-24-2022 Culture, Urine [employer] Phone: Comment on above: 1 Occurrences starti ng 09/24/2022 until 09/24/2022 End: 07-29-2022 Cytopathology procedure, preparation of smear, genital source PAP SMEAR Lab Routine Screening for vaginal cancer 1 Occurrences starting 07/29/2022 until 07/29/2022 [facility] Work Phone: Comment on above: 1 Occurrences starti ng 07/29/2022 until 07/29/2022 End: 03-06-2023 ECG COMPLETE ECG COMPLETE ECG Routine Essential hypertension 1 Occurrences starting 03/06/2022 until 03/06/2023 [facility] Work Phone: Comment on above: 1 Occurrences starti ng 03/06/2022 until 03/06/2023 [facility] Immunizations Immunization Date Immunization Notes Care Provider [facility] 08-01-2022 influenza virus vaccine, unspecified formulation ANNE Cee APRN.CNP Work Phone: [facility] [place] [facility] 12-09-2020 COVID-19 mRNA Comirnaty (Pfizer) MD Ivonne Álvarez Work Phone: [facility] 11-19-2020 COVID-19 mRNA Comirnaternesto (Pfizer) MD Ivonne Álvarez Work Phone: [facility] 11-17-2020 COVID-19 mRNA Comirchris (Pfizer) MD Ivonne Álvarez Work Phone: [facility] Payers Date Payer Category Payer Self-pay [id number] 2019 Private Health Insurance [facility] AARP SUPPLEMENT [id number] 2019-Present [phone] [address] [place] [address] Indemnity [id number] 2019 Private Health Insurance [facility] AARP SUPPLEMENT [id number] 2019-Present [phone] [address] [place] [address] Indemnity [id number] 2017 Medicare MEDICARE MEDICAR E A AND B [id number] 2017-Present [phone] [place] [address] Medicare [id number] 2017 Medicare MEDICARE MEDICAR E A AND B [id number] 2017-Present [phone] [place] [address] Medicare [id number] 1959 Medicare [id number] 1959 Unknown [id number] 1952 Unknown [id number] 1952 Unknown [id number] 1952 Unknown [id number] 1952 Unknown [id number] 1952 Unknown [id number] Private Health Insurance [employer] [id number] Unknown [id number] Social History Date Type Detail Facility Start: 12-03-2015 End: 05-28-2020 Tobacco smoking status NHIS Never smoked tobacco [facility] [place] [facility] Start: 12-03-2015 End: 05-28-2020 Tobacco use and exposure Smokeless tobacco non-user [facility] Start: 12-10-2020 End: 06-23-2022 Alcohol intake Current drinker of alcohol (finding) [facility] Start: 06-11-2020 History SDOH Alcohol Frequency 3 [facility] Start: 12-03-2015 History SDOH Alcohol Comment occasionally [facility] Start: 1950 Sex Assigned At Female [facility] Start: 02-24-2022 End: 06-23-2022 Exposure to SARS-CoV-2 (event) Not sure [facility] Start: 07-29-2022 History SDOH Alcohol Comment occasional [employer] Phone: Start: 1950 Sex Assigned At Not on file [employer] Phone: Start: 06-11-2020 End: 11-08-2022 History of Social function [place] [facility] Start: 06-11-2020 End: 11-08-2022 Alcohol Use Disorder Identification Test - Consumption [AUDIT-C] [facility] How often to you hav e a drink containing alcohol? 2-4 times a month [facility] Average Number of Drinks Not on file [facility] Start: 07-04-2020 Gender identity Identifies as female gender (finding) [facility] Start: 07-04-2020 Sexual orientation Heterosexual (finding) [facility] Clinical Notes 03-06-2022 to 08-10-2023 Telephone Encounter [...] mouth once daily. Authorizing Provider: Reba CEE APRN.CNP documented in this encounter [facility] 06-23-2022 History of Presen t illness Narrative Images from the original note were not included. [facility] Vickie Messer Department of Cardiovascular Medicine SECTION OF CLINICAL CARDIOLOGY OUTPATIENT VISIT DATE June 23, 2022 OUTPATIENT VISIT TYPE ESTABLISHED PRIMARY CARE PHYSICIAN: Ivonne Álvarez MD [address] [place] [address] CHIEF COMPLAINT: Follow-up Feeling well HISTORY OF [...] labs. She will get them done at [facility] and let us know once this is accomplished CONTACT INFORMATION: Oma Alejo Department of Cardiovascular Medicine [facility] Desk [place] [address] Office - [phone] extension [phone] Office Appointments: [phone] extension [phone] documented in this encounter [facility] 03-06-2022 Miscellaneous Notes The following approved medication requests have been transmitted electronically. Signed Prescriptions Disp Refills chlorthalidone (HYGROTON) 25 mg tablet 90 tablet 3 Sig: Take 1 tablet by mouth once daily. RADHA: No Authorizing Provider: Reba CEE Recommend follow up with Dr Palomares in the next 3 months. Ric Cee APRN.CHAN documented in this encounter [facility] Evaluation note Diagnosis Essential hypertension Unspecified essential hypertension documented in this encounter [facility] note* Diagnosis Essential hypertension- Primary Unspecified essential hypertension documented in this encounter [facility] note* Diagnosis PRISCILA (acute kidney injury) (HCC)- Primary Acute kidney failure, unspecified documented in this encounter [facility] noteNo assessment information availableUniversity [facility] Work Phone: Evaluation note* Diagnosis Essential hypertension- Primary Unspecified essential hypertension Mixed hyperlipidemia documented in this encounter [facility] note* Diagnosis Screening for vaginal cancer Special screening for malignant neoplasms, vagina Urinary incontinence, unspecified type documented in this encounter [facility] Phone: [email or web address] note* Diagnosis Mixed incontinence Mixed incontinence urge and stress (male)(female) Frequent UTI Urinary tract infection, site not specified documented in this encounter [facility] Phone: [email or web address] note* Diagnosis Frequent UTI Urinary tract infection, site not specified documented in this encounter [facility] Phone: evaluation note* Diagnosis Essential hypertension Unspecified essential hypertension [facility] Outpatient Procedure (Routine) - Authorized Specialty Diagnoses / Procedures Referred By Contac t Referred To [facility] Diagnoses Essential hypertension Procedures ECG COMPLETE ECG ROUTINE ECG W/LEAST 12 LDS W/I&R Dante Palomares MD [address] [place] [address] [facility] [address] [place] [id number] Referral ID Status Reason Start Date Expiration Date Visits Requested Visits Authorized [id number] Authorized Auto-Generat ed Referral 03/06/2022 03/06/2023 1 1 [facility] Chief Complaint and Reason for Visit Chief Complaint Screening Family History No Family History Records Found Relationship Condition Age at Onset Recorded Date/T zulma father Cardiovascular disease Unknown Multiple myeloma Unknown Relationship Condition Age at Onset Recorded Date/T zulma father Cardiovascular disease Unknown Multiple myeloma Unknown father Heart disease Unknown Malignant neoplasm Unknown mother Heart disease Unknown Advance Directives No Advanced Directives Records [...] or prosecute any alcohol or drug abuse patient.[facility] the event this information is protected by the Federal Confidentiality of Alcohol and Drug Abuse Patient Records regulations: The Federal rules restrict any use of the information to criminally investigate or prosecute any alcohol or drug abuse patient.[facility] the event this information is protected by the Federal Confidentiality of Alcohol and Drug Abuse Patient Records regulations: The Federal rules restrict any use of the information to criminally investigate or prosecute any alcohol or drug abuse patient.[facility] the event this information is protected by the Federal Confidentiality of Alcohol and Drug Abuse Patient Records regulations: The Federal rules restrict any use of the information to criminally investigate or prosecute any alcohol or drug abuse patient.[facility] the event this information is protected by the Federal Confidentiality of Alcohol and Drug Abuse Patient Records regulations: The Federal rules restrict any use of the information to criminally investigate or prosecute any alcohol or drug abuse patient.[facility] Reason for Visit (unrecogniz ed section and [...] Active Jazzy Riley APRN Referring Provider Active International Sourcing Manager Relationship Specialty Start Date End Date Ivonne Álvarez MD PCP - General Family Practice 12/03/15 International Sourcing Manager Relationship Specialty Start Date End Date Ivonne Álvarez MD PCP - General Family Practice 12/03/15 International Sourcing Manager Relationship Specialty Start Date End Date Ivonne Álvarez MD PCP - General Family Practice 12/03/15 Team Status: Inactive Member Role Status Dates Ivonne Álvarez MD Primary Care Provider Active Referral Self Attending Provider Active International Sourcing Manager Relationship Specialty Start Date End Date Ivonne Álvarez MD PCP - General Family Practice 12/03/15 International Sourcing Manager Relationship Specialty Start Date End Date Ivonne Álvarez MD [address] [place] [address] PCP - General 06/16/13 International Sourcing Manager Relationship Specialty Start Date End Date Ivonne Álvarez MD [address] [place] [address] PCP - General 06/16/13 International Sourcing Manager Relationship Specialty Start Date End Date Ivonne Álvarez MD [address] [place] [address] PCP - General 06/16/13 International Sourcing Manager Relationship Specialty Start Date End Date Ivonne Álvarez MD PCP - General Family Medicine 12/03/15 Team Status: Inactive Member Role Status Dates Ivonne Álvarez MD Primary Care Provider Active Start: August 04, 2024 End: August 04, 2024 Jzazy Riley APRN Attending Provider, Referring Provider Active Start: August 04, 2024 End: August 04, 2024 Goals (unrecognized section and content) Goals may be documented in a n alternate sectionGoals may be documented in an alternate sectionGoals may be documented in an alternate section INFORMATION SOURCE (unrecogn ized section and content) DATE CREATED AUTHOR 01/03/2023 [facility] DATE CREATED AUTHOR AUTHOR'S ORGANIZ ATION 08/15/2023 [facility] DATE CREATED AUTHOR AUTHOR'S ORGANIZ ATION 08/07/2024 [facility] DATE CREATED AUTHOR AUTHOR'S ORGANIZ ATION 08/08/2024 [facility] [address] [facility] FOR RECORDS PERTAINING TO PATIENTS WHO ARE [...] BE BASED ON THE PRIMARY CLINICAL RECORDS. [facility]. provides no warranty or guarantee of the accuracy or completeness of information in this document.
[2024-12-29 12:30] LABS: Estimated Average Glucose 114 mg/dL; Glycohemoglobin A1C 5.6 % (4.5-6.2)
[2024-12-29 12:58] LABS: Basophils Absolute Auto 0.1 10^3/uL (0.0-0.1); Eosinophils Absolute Auto 0.2 10^3/uL (0.0-0.7); Eosinophils Percent Auto 2.6 % (0.9-7.0); Hematocrit 42.1 % (36.0-48.0); Hemoglobin 13.7 g/dL (12.0-16.0); Immature Granulocytes Abs Auto 0.01 10^3/uL (0.00-0.03); Immature Granulocytes Pct Auto 0.1 % (0.0-0.5); Lymphocytes Absolute Auto 3.6 10^3/uL (1.2-3.8); Lymphocytes Percent Auto 46.3 % (20.5-60.0); Mean Corpuscular HGB Conc 32.5 g/dL (29.9-35.2); Mean Platelet Volume 9.6 fL (9.5-13.5); Monocytes Absolute Auto 0.4 10^3/uL (0.3-0.8); Monocytes Percent Auto 4.5 % (1.7-12.0); Neutrophils Absolute Auto 3.5 10^3/uL (1.4-6.5); Neutrophils Percent Auto 45.5 % (43.0-75.0); Platelet Count 287 10^3/uL (150-450); Red Blood Count 4.73 10^6/uL (4.20-5.40); Red Cell Distribution Width 13.8 % (11.0-15.0); White Blood Count 7.7 10^3/uL (4.0-11.0)
[2024-12-29 13:13] LABS: Alanine Aminotransferase 17 U/L (14-59); Albumin Globulin Ratio 1.1; Albumin Level 3.6 g/dL (3.4-5.0); Alkaline Phosphatase 81 U/L (46-116); Anion Gap 10.9; Aspartate Amino Transferase 16 U/L (15-37); BUN Creatinine Ratio 25.3; Bilirubin Total 0.6 mg/dL (0.2-1.0); Calcium 9.2 mg/dL (8.5-10.1); Carbon Dioxide 30.9 mmol/L (21.0-32.0); Chloride 104 mmol/L (98-107); Chol HDL Ratio 4.6; Cholesterol 215 mg/dL (<=200); Estimated GFR (African America >60 (>=60 mL/min/1.73m^2); Estimated GFR (Non-African Ame 55 (>=60 mL/min/1.73m^2); Globulin 3.3 g/dL; Glucose 119 mg/dL (74-106); HDL Cholesterol 47 mg/dL (40-60); Potassium 3.8 mmol/L (3.5-5.1); Sodium 142 mmol/L (136-145); Total Protein 6.9 g/dL (6.4-8.2); Triglycerides 168 mg/dL (<=150); VLDL CHOLESTEROL 33.6 mg/dL
== END 2024-12-29 11:48 | disposition home or self-care (01) ==
LOC: LAB 11:49
PROVIDERS: PCP Family Medicine; Visit Provider Family Medicine
DX: R35.0 Frequency of micturition (principal); I10 Essential (primary) hypertension; G47.30 Sleep apnea, unspecified; E78.00 Pure hypercholesterolemia, unspecified; K58.9 Irritable bowel syndrome, unspecified; R73.09 Other abnormal glucose; D64.9 Anemia, unspecified; E03.9 Hypothyroidism, unspecified; R53.83 Other fatigue
CPT/HCPCS: 36415; 80053; 80061; 83036; 83540; 84436; 84443; 84481; 85025